=== PATIENT | male | born 1980 | race Two or more races ===

== ENCOUNTER 2022-06-12 18:06 | Inpatient (IN) | payer OTHER, SELFPAY ==
[2022-06-12] VITALS (9 sets, daily range): BP systolic 191–284; BP diastolic 131–178; PULSE 84–122; RESP 15–25; TEMP 36.7–37.1; O2SAT 92–99; BMI 31.1
--- NOTE | ~2022-06-12 | CT_ITS ---
EXAMINATION: CT ANGIOGRAM CHEST CLINICAL INFORMATION: Vomiting. Question dissection. COMPARISON: None TECHNIQUE: Multiple axial images were obtained through the chest after the administration of 50 mL of Omnipaque 350 intravenous contrast. Extensive vascular post-processing including two-dimensional and three-dimensional reformatted images were created and reviewed on an independent workstation. This CT examination was performed using dose optimization techniques as appropriate, variously including the following: *Automated exposure control *Adjustment of mA and/or kV according to patient size (this includes techniques or standardized protocols for targeted exams where dose is matched to indication/reason for exam; i.e. extremities or head) *Use of iterative reconstruction technique DLP: 670 mGy-cm FINDINGS: CTA chest: The entire thoracic aorta is of normal caliber without any dissection or aneurysm. There is a normal three-vessel cervicocerebral arch branching. The pulmonary artery and its branches are widely patent. The heart size is normal. No pericardial effusion seen. Non-CTA: Central trachea and bronchus is widely patent. The thoracic aorta is of normal caliber. No abnormal size mediastinal lymph nodes or hematoma. The lungs are clear with patchy opacity seen in the superior segment of right upper lobe on axial image 28/9. Rest of lungs are clear.. There is no pleural effusion or thickening. Bone windows reveal no bony abnormality. CA ABDOMEN: The abdominal aorta is of normal caliber without aneurysm or dissection. Visualized celiac, superior mesenteric and inferior mesenteric arteries are widely patent. Solitary renal arteries are patent as well. There is a normal branching of the abdominal aorta into common iliac which bifurcate into symmetrical and to the adnexa iliac arteries. No aneurysm or dissection seen in the pelvis. Non-CTA: Visualized liver, spleen, pancreas and bilateral adrenal glands unremarkable. No radiopaque gallstones, renal calculi or hydronephrosis. The kidneys are symmetrical. No retrobulbar lymph nodes or hematoma. There is scattered stool and gas seen in the colon without obstruction. The small bowel loops are normal caliber. Appendix is not visualized however there are surgical sutures in the right lower quadrant likely from previous resection. The stomach is nondistended. The abdominal wall appears unremarkable. The urinary bladder is nondistended. The prostate gland is normal. No abnormal pelvic or inguinal lymph nodes seen. Bone windows reveal no gross bony abnormality. CT/CT angio chest aorta IMPRESSION: No evidence of thoracic or abdominal aortic aneurysm or dissection seen. Normal three-vessel branching of cervical cerebral arch. The abdominal aortic branches and bifurcation are all patent without any aneurysm. There is a patchy opacity in the superior segment right lower lobe question developing or early infiltrate. No acute process seen in the abdomen. Fleischner guidelines were followed.
--- NOTE | ~2022-06-12 | CT_ITS ---
EXAMINATION: CT ANGIOGRAM ABDOMEN AND PELVIS CLINICAL INFORMATION: Dissection question vomiting. COMPARISON: None TECHNIQUE: Multiple axial images were obtained through the abdomen and pelvis following the administration of 100 mL of Omnipaque 350 intravenous contrast. Images were reviewed on a dedicated 3-D workstation. This CT examination was performed using dose optimization techniques as appropriate, variously including the following: *Automated exposure control *Adjustment of mA and/or kV according to patient size (this includes techniques or standardized protocols for targeted exams where dose is matched to indication/reason for exam; i.e. extremities or head) *Use of iterative reconstruction technique DLP: 670 mGy-cm FINDINGS: CTA: There is good opacification of the entire thoracic aorta which is of normal caliber and course. Origin of celiac, superior and inferior mesenteric artery are widely patent. There are 2 left renal arteries and a solitary right renal artery which are patent. The abdominal aorta bifurcates in equal, iliac arteries which in turn bifurcate into internal iliac arteries and their patent. Non-CTA: The liver is normal size, homogeneous in density and normal contour. No focal lesion or intrahepatic ductal dilatation seen. There are no radiopaque gallstones or wall thickening. The spleen and pancreas is unremarkable. Bilateral adrenal glands are normal. Both kidney nephrograms are symmetrical and normal. No radiopaque renal calculi, enhancing renal masses or cysts. There are bilateral extrarenal kidney pelvises. No hydronephrosis seen. The bowel gas pattern is nonspecific with scattered stool and gas in the right colon. The appendix appears to have been surgically removed with sienna in its place. Scattered diverticula are seen in sigmoid colon. There is a loculated fluid collection or soft tissue density in the dependent segment of the stomach No free air or free fluid seen. Imaging through the the pelvis reveals no significant abnormality. The prostate gland is mildly enlarged. The urinary bladder is nondistended there is no free fluid or free air. Bone windows reveal no lytic or sclerotic process. CT/CT angio abdomen pelvis IMPRESSION: No acute intra-abdominal process seen. Especially there is no evidence aortic dissection or aneurysm. Appendix has been surgically removed. No radiopaque gallstone seen. Loculated fluid collection in the dependent segment of stomach. Question localized fluid collection or cyst.
--- NOTE | 2022-06-12 19:30 | ECG_ITS ---
Test Reason : HTN Blood Pressure : / mmHG Vent. Rate : 116 BPM Atrial Rate : 116 BPM P-R Int : 146 ms QRS Dur : 088 ms QT Int : 354 ms P-R-T Axes : 063 026 199 degrees QTc Int : 492 ms Sinus tachycardia Biatrial enlargement Left ventricular hypertrophy ( Sokolow-Julian , [place] product , Romhilt-Ruiz ) Marked ST abnormality, possible inferolateral subendocardial injury Abnormal ECG No previous ECGs available Referred By: Kaitlin Brown Electronically Signed By:BONNIE TAPIA
--- NOTE | 2022-06-12 19:49 | ECG_ITS ---
Test Reason : ELEVATED TROPONIN Blood Pressure : / mmHG Vent. Rate : 081 BPM Atrial Rate : 081 BPM P-R Int : 158 ms QRS Dur : 096 ms QT Int : 432 ms P-R-T Axes : 050 023 192 degrees QTc Int : 501 ms Normal sinus rhythm Right atrial enlargement Moderate voltage criteria for LVH, may be normal variant ( Sokolow-Julian , Favio product ) Septal infarct , age undetermined ST & Marked T-wave abnormality, consider inferolateral ischemia Prolonged QT Abnormal ECG When compared with ECG of 12-JUN-2022 19:55, Septal infarct is now Present Heart rate has decreased Referred By: Kaitlin Brown Electronically Signed By:BONNIE TAPIA
--- NOTE | 2022-06-12 19:49 | ED.ABDPAIN ---
HPI - Abdominal Pain General Chief Complaint: Recheck/Abnormal Lab/Rx Stated Complaint: abd apin,urinating blood Time Seen by Provider: 06/12/22 19:46 History of Present Illness HPI narrative: Patient is a 41-year-old male presents today with having abdominal pain epigastric area ongoing for last 3 days associated with nausea vomited earlier. Patient also complaining of bloody urine. Has a history of appendectomy many years ago. No history of diabetes. No history of hypertension, high cholesterol, smoking. No history of PA. Patient denies any recreational drug use. Under medications. The pain ? goes to the back, it is localized over the epigastric area. Patient denies any history kidney stones. Denies any alcohol no trauma. Normal bowel movement. No sudden in the family Related Data Allergies Allergy/AdvReac Type Severity Reaction Status Date / Time No Known Allergies Allergy Mild NONE Unverified 06/12/20 15:14 Review of Systems Review of Systems Positive epigastric pain Yes all other systems are reviewed and are negative PMFSH Past Medical History Attestation statement: The following information was validated with the patient. Social History Social History Alcohol intake: never Smoked in Last 30 Days: No Use of substances other than those prescribed or required for medical reasons: No Any prior treatment program specific to substance use: No Advance Directives: No Physical Exam ED Vital Signs: Vital Signs - 24 hr 06/12/22 19:22 06/12/22 19:49 06/12/22 20:27 Temperature 98.1 F 98.0 F Pulse Rate 117 H 122 H 95 Respiratory Rate 16 18 18 Blood Pressure 284/178 H 266/175 H 233/160 H Pulse Oximetry 98 98 95 Oxygen Delivery Method Room Air Room Air Room Air 06/12/22 20:28 06/12/22 19:50 06/12/22 21:18 Temperature 98.8 F Pulse Rate 95 89 92 Respiratory Rate 18 25 H Blood Pressure 239/157 H 217/154 H 220/148 H Pulse Oximetry 95 92 Oxygen Delivery Method Room Air Room Air 06/12/22 22:18 Temperature Pulse Rate 88 Respiratory Rate 18 Blood Pressure 194/134 H Pulse Oximetry 98 Oxygen Delivery Method Room Air BMI result Body Mass Index 31.1 Appearance: Alert. Oriented X3. No acute distress. Eyes: Pupils equal, round and reactive to light. ENT: Pharynx normal. Neck: Normal inspection. Neck supple. No lymph nodes noted. No crepitus CVS: Normal heart rate and rhythm. Pulses normal. Normal S1 and S2 Respiratory: No respiratory distress. Breath sounds normal. No Wheezing. No rales Abdomen: Soft and nontender. No rigidity. No distention. good BS x4. no mass Skin: Skin warm and dry. Normal skin color. Normal skin turgor. Extremities: No lower extremity edema. Neurovascular intact to all extremities. No Lacerations. No Rash Neuro: Oriented X 3. No motor deficit. No sensory deficit. Moving all extermities. No slurred speech MDM - Abdominal Pain MDM Narrative Medical decision making narrative: 20:00Patient's initial blood pressure extremely elevated this was verified x2. The blood pressure initially was 284/178. EKG showed a sinus pattern heart rate was 120 NE QRS QT within normal limits. There is significant J-point elevations in the anterior leads with T-wave inversion over the lateral leads. Given the extreme elevated blood pressure. Epigastric pain question going to the back. No prior Cr. No hx of renal failure. Decision was made to get a CTA emergently to rule out the possibility of a dissection. Troponin ordered. Patient given doses of labetalol. Initially 10 mg followed by 20 mg. Patient's blood pressure is now down to 220/140. Repeat EKG being done. Will discuss patient's case with [facility]. 21:30CTA of the chest abdomen pelvis was negative for any acute evidence of dissection.Pt Cr. was elevated at 3 will need close monitoring of kidney function. Repeat ekfg no changes, given ASA 324 mg. Awaiting [facility]. after 3 dose of Labetolol BP down to 198/100 22:00 patient case discussed with [facility] except the patient for further evaluation. Blood pressure still elevated. 200/130. A 4th dose of labetalol was given. 22:15 patient's COVID test positive. Will inform [facility]. Patient made aware. He is not hypoxic. Patient's CT imaging is being sent over the cloud to [facility]. Lab Data Result diagrams: 06/12/22 20:14 06/12/22 20:14 Labs: Lab Results 09/17/22 09/17/22 09/17/22 Range/Units 20:14 20:14 20:14 WBC 10.6 (4.8-10.8) X10*3/uL RBC 5.50 (4.60-5.80) X10*6/uL Hgb 13.1 L (14.0-18.0) g/dl Hct 40.1 L (42.0-52.0) % MCV 72.9 L (80.0-98.0) fL MCH 23.8 L (27.0-33.0) pg MCHC 32.7 (31.0-36.0) g/dl RDW 14.5 (11.0-16.0) % Plt Count 189 (160-400) X10*3/uL MPV 9.6 (9.4-12.4) fL Immature Gran % (Auto) 0.3 (0.0-0.4) % Neut % (Auto) 76.6 H (45-73) % Lymph % (Auto) 14.6 L (20-40) % [place] % (Auto) 7.5 (2-11) % Eos % (Auto) 0.5 (0-4) % Baso % (Auto) 0.5 (0-2) % Lymph # (Auto) 1.6 (1.2-4.9) X10*3/uL [place] # (Auto) 0.8 (0.1-1.2) X10*3/uL Eos # (Auto) 0.1 (0.0-0.4) X10*3/uL Baso # (Auto) 0.1 (0.0-0.2) X10*3/uL Abs Immat Gran (auto) 0.03 (0.00-0.03) X10*3/uL Absolute Neuts (auto) 8.1 (2.0-8.3) x10*3/uL Absolute Nucleated RBC 0.000 (0.0-0.012) X10*3/uL Nucleated RBC % (auto) 0.0 (0.0-0.2) /100WBC Sodium 139 (135-145) mmol/L Potassium 2.6 L (3.3-5.1) mmol/L Chloride 97 (96-108) mmol/L Carbon Dioxide 28 (22-29) mmol/L Anion Gap 17 (12-20) BUN 35 H (9-16) mg/dL Creatinine 3.05 H (0.5-1.4) mg/dL Estim Creat Clear Calc 34.1 Estimated GFR 23 Random Glucose 125 H (60-115) mg/dL Calcium 9.1 (8.4-10.2) mg/dL Total Bilirubin 0.8 (0.0-1.0) mg/dL AST 25 (5-37) U/L ALT 19 (0-40) U/L Alkaline Phosphatase 103 (39-117) U/L Troponin I High Sens 168.1 H* (<3.5-35.0) ng/L Total Protein 7.5 (6.5-8.0) g/dL Albumin 4.3 (3.5-5.0) g/dL Lipase 48 (8-78) U/L Urine Opiates Screen (Not Detect) Urine Fentanyl Screen (Not Detect) Ur Barbiturates Screen (Not Detect) Ur Phencyclidine Scrn (Not Detect) Ur Amphetamines Screen (Not Detect) U Benzodiazepines Scrn (Not Detect) Urine Cocaine Screen (Not Detect) U Marijuana (THC) Screen (Not Detect) COVID-19 (CAROLE) (Negative) COVID-19 Clin Com 06/12/22 06/12/22 Range/Units 21:54 22:06 WBC (4.8-10.8) X10*3/uL RBC (4.60-5.80) X10*6/uL Hgb (14.0-18.0) g/dl Hct (42.0-52.0) % MCV (80.0-98.0) fL MCH (27.0-33.0) pg MCHC (31.0-36.0) g/dl RDW (11.0-16.0) % Plt Count (160-400) X10*3/uL MPV (9.4-12.4) fL Immature Gran % (Auto) (0.0-0.4) % Neut % (Auto) (45-73) % Lymph % (Auto) (20-40) % [place] % (Auto) (2-11) % Eos % (Auto) (0-4) % Baso % (Auto) (0-2) % Lymph # (Auto) (1.2-4.9) X10*3/uL [place] # (Auto) (0.1-1.2) X10*3/uL Eos # (Auto) (0.0-0.4) X10*3/uL Baso # (Auto) (0.0-0.2) X10*3/uL Abs Immat Gran (auto) (0.00-0.03) X10*3/uL Absolute Neuts (auto) (2.0-8.3) x10*3/uL Absolute Nucleated RBC (0.0-0.012) X10*3/uL Nucleated RBC % (auto) (0.0-0.2) /100WBC Sodium (135-145) mmol/L Potassium (3.3-5.1) mmol/L Chloride (96-108) mmol/L Carbon Dioxide (22-29) mmol/L Anion Gap (12-20) BUN (9-16) mg/dL Creatinine (0.5-1.4) mg/dL Estim Creat Clear Calc Estimated GFR Random Glucose (60-115) mg/dL Calcium (8.4-10.2) mg/dL Total Bilirubin (0.0-1.0) mg/dL AST (5-37) U/L ALT (0-40) U/L Alkaline Phosphatase (39-117) U/L Troponin I High Sens (<3.5-35.0) ng/L Total Protein (6.5-8.0) g/dL Albumin (3.5-5.0) g/dL Lipase (8-78) U/L Urine Opiates Screen Not Detected (Not Detect) Urine Fentanyl Screen Not Detected (Not Detect) Ur Barbiturates Screen Not Detected (Not Detect) Ur Phencyclidine Scrn Not Detected (Not Detect) Ur Amphetamines Screen Not Detected (Not Detect) U Benzodiazepines Scrn Not Detected (Not Detect) Urine Cocaine Screen Not Detected (Not Detect) U Marijuana (THC) Screen Not Detected (Not Detect) COVID-19 (CAROLE) Positive A (Negative) COVID-19 Clin Com See Note Critical Care Time Critical Care Time Critical Care Time: Yes Total Critical Care Time: 90 Attestation: I have personally provided 90 minutes of critical care time exclusive of time spent on separately billable procedures. Time includes review of lab data, radiology results, discussion with consultants, and monitoring for potential decompensation. Interventions were performed as documented above Discharge Plan Discharge Clinical Impression: Hypertensive emergency, no CHF, Acute renal failure, COVID-19 Patient Disposition: [facility] Transfer Details: transfer to [facility]
[2022-06-12] MEDS: 0.9 % Sodium Chloride 1,000 ML 999 ML IV ×2 (20:18→22:58)
[2022-06-12] MEDS: ondansetron HCL 4 MG/2 ML VIAL IVPUSH (20:18)
[2022-06-12 20:20] LABS: MANUAL DIFF FLAG NO
[2022-06-12] MEDS: HYDROmorphone HCl 0.5 MG/0.5 ML SYRINGE IVPUSH (20:20)
[2022-06-12] MEDS: Labetalol HCL 100 MG/20 ML VIAL 10 MG IVPUSH (20:21)
[2022-06-12 20:30] LABS: Basophils Absolute Auto 0.1 X10*3/uL (0.0-0.2); Basophils Percent Auto 0.5 % (0-2); Eosinophils Absolute Auto 0.1 X10*3/uL (0.0-0.4); Eosinophils Percent Auto 0.5 % (0-4); Hematocrit 40.1 % (42.0-52.0); Hemoglobin 13.1 g/dl (14.0-18.0); Imm Gran Abs Auto 0.03 X10*3/uL (0.00-0.03); Imm Gran Pct Auto 0.3 % (0.0-0.4); Lymphocytes Absolute Auto 1.6 X10*3/uL (1.2-4.9); Lymphocytes Percent Auto 14.6 % (20-40); Mean Corpuscular HGB Conc 32.7 g/dl (31.0-36.0); Mean Corpuscular Hemoglobin 23.8 pg (27.0-33.0); Mean Corpuscular Volume 72.9 fL (80.0-98.0); Mean Platelet Volume 9.6 fL (9.4-12.4); Monocytes Absolute Auto 0.8 X10*3/uL (0.1-1.2); Monocytes Percent Auto 7.5 % (2-11); Neutrophils Absolute Auto 8.1 x10*3/uL (2.0-8.3); Neutrophils Percent Auto 76.6 % (45-73); Platelet Count 189 X10*3/uL (160-400); Red Cell Distribution Width 14.5 % (11.0-16.0); White Blood Count 10.6 X10*3/uL (4.8-10.8)
[2022-06-12] MEDS: Labetalol HCL 100 MG/20 ML VIAL 20 MG IVPUSH ×3 (20:31→22:21)
[2022-06-12] MEDS: iohexoL 350 MG/ML 100 ML INFUS..BTL IV (20:57)
[2022-06-12 21:09] LABS: Alanine Aminotransferase 19 U/L (0-40); Albumin Level 4.3 g/dL (3.5-5.0); Alkaline Phosphatase 103 U/L (39-117); Anion Gap 17 (12-20); Aspartate Amino Transferase 25 U/L (5-37); Bilirubin Total 0.8 mg/dL (0.0-1.0); Blood Urea Nitrogen 35 mg/dL (9-16); Calcium 9.1 mg/dL (8.4-10.2); Carbon Dioxide 28 mmol/L (22-29); Chloride 97 mmol/L (96-108); Creatinine Clr Calc Pharmacy 34.1; Estimated Glomerular Filt Rate 23; Glucose Random 125 mg/dL (60-115); Lipase 48 U/L (8-78); Potassium 2.6 mmol/L (3.3-5.1); Sodium 139 mmol/L (135-145); Total Protein 7.5 g/dL (6.5-8.0)
[2022-06-12 21:11] LABS: Troponin-I High Sensitivity 168.1 ng/L (<3.5-35.0)
--- NOTE | 2022-06-12 21:17 | ECG_ITS ---
Test Reason : HYPERTENSIVE CRISIS Blood Pressure : / mmHG Vent. Rate : 072 BPM Atrial Rate : 072 BPM P-R Int : 158 ms QRS Dur : 088 ms QT Int : 466 ms P-R-T Axes : 051 029 198 degrees QTc Int : 510 ms Normal sinus rhythm Possible Left atrial enlargement Left ventricular hypertrophy ( Sokolow-Julian , Favio product , Romhilt-Ruiz ) ST elevation now present in Septal leads Marked T-wave abnormality, consider inferolateral ischemia Prolonged QT Abnormal ECG When compared with ECG of 12-JUN-2022 21:34, Septal injury pattern is now Present Referred By: Kaitlin Brown Electronically Signed By:BONNIE TAPIA
[2022-06-12] MEDS: Potassium Chloride Packet 20 MEQ PACKET 40 MEQ PO (21:30)
[2022-06-12] MEDS: Aspirin 81 MG TAB.CHEW 324 MG PO (21:30)
[2022-06-12] MEDS: Potassium Chloride/H20 10 MEQ/100 ML PIGGYBACK 100 MEQ IV ×2 (21:49→22:53)
[2022-06-12 22:14] LABS: Amphetamine Screen Urine Not Detected (Not Detect); Barbiturates, Urine Not Detected (Not Detect); Benzodiazepines Screen Urine Not Detected (Not Detect); Cannabinoid Screen Urine Not Detected (Not Detect); Cocaine Screen Urine Not Detected (Not Detect); Fentanyl, urine Not Detected (Not Detect); Opiate Screen Urine Not Detected (Not Detect); Phencyclidine Screen Urine Not Detected (Not Detect)
[2022-06-12 22:19] LABS: COVID-19 Test Positive (Negative)
[2022-06-12 22:25] LABS: Appearance Urine Turbid; Color Urine RED; Glucose Urine UA 100 mg/dL (Negative); Leukocyte Esterase Urine Negative (Negative); Nitrite Urine Negative (Negative); Specific Gravity - Urine >= 1.030 (1.005-1.025); UMIC TRIGGER UACC YES; Urine Blood Large (3+) (Negative); Urine Ketones Negative (Negative); Urine Protein 300 (3+) mg/dL (Neg-Trace)
--- NOTE | 2022-06-12 22:36 | PC.NURSE ---
Addendum entered by Svitlana Toth 06/12/22 22:41: Due to covid + status, no bed available. Original Note: Accepting MD [facility] at [facility]
[2022-06-12 22:41] LABS: RBC Urine >20 /HPF (0-2); Squamous Epithelial Cell Urine 0-2 /HPF (0-2); WBC Urine 0-5 /HPF (0-5)
[2022-06-12 22:42] LABS: Bacteria Urine None Seen (None Seen)
[2022-06-12 23:32] LABS: Troponin-I High Sensitivity 185.6 ng/L (<3.5-35.0)
[2022-06-12] MEDS: atenoloL 100 MG TABLET PO (23:44)
[2022-06-12] MEDS: Nitroglycerin 2 % Oint 1 GM Packet 1 INCH TRANSDERMA (23:44)
[2022-06-12] MEDS: Lactated Ringers 1,000 ML 999 ML IV (23:52)
[2022-06-13] VITALS (13 sets, daily range): BP systolic 131–186; BP diastolic 78–109; PULSE 70–86; RESP 16–27; TEMP 36.4–37.1; O2SAT 93–99
[2022-06-13] MEDS: Heparin Sodium,Porcine 5,000 UNIT/ML VIAL 5000 UNIT SUBCUT
[2022-06-13] MEDS: Lactated Ringers 1,000 ML 999 ML IV (00:03)
[2022-06-13 00:06] LABS: Lactic Acid 0.9 mmol/L (0.5-2.0)
[2022-06-13 00:10] LABS: Iron 47 mcg/dL (45-160); Percent Iron Saturation 17 % (15-50); Total Iron Binding Capacity 278 mcg/dL (228-428); Unsaturated Iron Binding 231 ug/dL
[2022-06-13 00:36] LABS: Procalcitonin 0.06 ng/mL
[2022-06-13 00:39] LABS: Estimated Glomerular Filt Rate 29
--- NOTE | 2022-06-13 00:44 | P.CONCC_ITS ---
History of Present Illness Data of Consult Service Date: 06/13/22 Requesting physician: Kaitlin Brown Primary Care Provider: None Physician HPI Reason for consult: Full consult to follow HPI: ?41-year-old male without a past medical history presents to us via consult from the emergency room given significant hypertension, troponin abnormality.? The patient had come to the emergency room with complaints of hematuria which started about 3 in the morning on 06/12/2022, denies history of kidney stones, he does take some ibuprofen every now and then. ?Patient presented to the emergency room with complaints of hematuria, epigastric abdominal pain radiating to the le ft side of his chest and back, rated 9/10 at its worse, associated with nausea, nothing made it better and he cannot identify anything making it worse.? There is no family history of coronary artery disease.? Patient denies any lightheadedness or dizziness, arm or jaw pain, shortness of breath, palp itations, no recent traveling. In the ER he was significantly hypertensive on arrival with blood pressure of 284/178, heart rate of 117, respiratory rate 16, O2 sat 98% on room air, temperature 98 degrees point 1, he received a total of 4 doses of labetalol with total dose of 90 mg IV decreasing his blood pressure to 194/134.? He also received Zofran and 0.5 mg of Dilaudid, full-dose aspirin. ?The patient's EKG is significant for ST elevations throughout the anterior leads with ST depressions throughout the lateral leads followed by a repeat EKG which shows the same changes although to a lesser degree approximately 1-1/2 hours apart.? Again the patient has had no direct chest discomfort or shortness of breath. He did have a chest CT , abdomen pelvis CTA there is no evidence of PE, there is patchy opacities in the superior segment of the right upper lobe, no evidence of thoracic abdominal aortic aneurysm or dissection.? All the abdominal aortic branches and bifurcations are all patent without any aneurysms.? No acute process of the abdomen. His laboratory showed a white count 10.6, H&H of 13.140.1 respectively with an MCV of 72.9, platelets 189.? Sodium 139, potassium 2.6 for which replacement was given, BUN 35, creatinine 2.48 (no baseline available) lactic acid 0.9 iron profile 0.? Initial troponin 168.1 followed by 2nd troponin 3 hours later at 185.6. Currently patient feels much better, he does have gross hematuria but no longer has the above-mentioned epigastric/left chest, back pain.? He is COVID positive. ?U tox completely negative. The initial plan was to transfer him to [facility] [place] but in light of his COVID positive result, this was not possible, we were asked to see the patient for possible admission to the ICU. Review of systems: As above, otherwise the patient denies any prior history of strokes, cold intolerance, migraine headaches, head trauma, no eyes, ears or nose problems, no problems swallowing or with phonation, no thyroid disease, denies cough, sputum production, pneumonia, bronchitis, COPD or emphysema, abdominal pain, nausea, vomiting, diarrhea, abdominal surgeries, melena, hematochezia, hematemesis, liver problems, immunocompromise state of any kind, no history of DVT or PE, leg edema, fractures or extremity surgeries all other review of systems were reviewed and they were all negative. Past Medical History:? As above Past Surgical History: Appendectomy Family history:? Noncontributory Social History:? Lives at home, social drinker, no tobacco drugs. CODE STATUS: FULL CODE Allergies: NKDA Home Medications: See Med Rec PHYSICAL EXAM: VS: ?191/131, 84, 15, 8% room air. General:? Alert oriented x3 no acute distress.? Speaking full sentences.? Speech is well articulated, thought process is coherent.? Following all commands. Skin:? Intact, no lesions, edema, erythema, clubbing or cyanosis.? No ulcers. HEENT:? Head is normocephalic, atraumatic, pupils equal round reactive to light accommodation bilaterally.? Extraocular movements appear intact.? Buccal mucosa is moist, Neck is supple without lymphadenopathy. Cardiac:? Clear S1-S2, no murmurs rubs or gallops.? There is no reversible palpable pain on the chest Pulmonary:? Minor coarseness at the right upper lobe without clear rhonchi, wheeze or rales Abdomen:? Protuberant, positive bowel sounds in all 4 quadrants.? Soft, nont alma, no rebound or guarding.? No CVA tenderness. Musculoskeletal:? Moving all 4 extremities upon request a major joints, there is no crepitus or tenderness.? The strength is 5/5 bilaterally and throughout all 4 extremities.? There is no leg edema , no calf tenderness , no leg asymmetry.? Gait not assessed at this point. Neurologic:? As above, cranial nerves 2-12 are grossly intact.? No focal def icits noted. Motor strength as above.? Vascular:? 2+ pulses upper and lower extremities distally. SIGNIFICANT LABORATORY DATA:? As above REVIEW OF IMAGES: ?As above EKG REVIEW:? As above ASSESSMENT : 1. Hypertensive emergency with end organ damage 2. Acute kidney injury 3. Significant proteinuria rule out nephrotic syndrome 4. Hematuria and abdominal pain without evidence of obstructive uropathy rule ou t renal infarction 5. ST elevations and depressions with abnormal troponin rule out acute coronary syndrome 6. Acute hypokalemia 7. Patchy opacities of the right upper lobe unsure if this represents pneumonia as the patient does not have symptoms PLAN OF CARE: Given the significance of the EKG and symptomatology, 1st and foremost is important to rule out acute coronary syndrome until proven otherwise.? Patient needs to be transferred to a tertiary facility were cardiac catheterization is available further evaluation. ?Given the hematuria, it is unlikely the patient is able to receive heparin at this point. I have ordered nitroglycerin paste to be applied to the chest, Lopressor 5 mg IV x1.? I did order blood cultures, however I did not order antibiotics for the patient is afebrile, does not have awakened, he is not sure breath, does not have cough or sputum production, this is less likely to represent a pneumonia.? It could be due to COVID positive results. After the above-mentioned medications the latest blood pressure is 165/108.? I also ordered 2 L of IV fluid for the patient was not produce any urine in the ER but now his voiding pink-red this urine.? Eventually the patient will need Nephrology evaluation and at the [place] did ultrasound of the kidneys. The above-mentioned assessment my plan of transferring the patient to a tertiary facility was discussed in detail with my collaborating physician Dr. Mckinney who agrees.? This information was shared with the ER physician Dr. Brown. Critical care time used for critical evaluation of this patient, diagnosis, treatment and coordination of care, review her records and documentation TOTAL CRITICAL CARE TIME 90 MIN . discussion and coordination with consultants, completely separate from any procedures performed. [facility] Social History Social History Alcohol intake: never Smoked in Last 30 Days: No Use of substances other than those prescribed or required for medical reasons: No Any prior treatment program specific to substance use: No Advance Directives: No Meds Allergies Allergy/AdvReac Type Severity Reaction Status Date / Time No Known Allergies Allergy Mild NONE Unverified 06/12/20 15:14 Physical Exam Vital Signs: Vital Signs: Last Vital Signs Temp 98.8 F 06/12/22 21:18 Pulse 86 06/13/22 00:04 Resp 18 06/13/22 00:04 BP 166/109 H 06/13/22 00:04 Pulse Ox 99 06/13/22 00:04 O2 Del Method 06/13/22 00:04 O2 Flow Rate 2 06/12/22 22:35 BMI result Body Mass Index 31.1 Results Labs CBC & Chem 7: 06/12/22 20:14 06/12/22 23:36 Labs: Short CBC 06/12/22 Range/Units 20:14 WBC 10.6 (4.8-10.8) X10*3/uL Hgb 13.1 L (14.0-18.0) g/dl Hct 40.1 L (42.0-52.0) % Plt Count 189 (160-400) X10*3/uL BMP 06/12/22 06/12/22 20:14 23:36 Sodium 139 Potassium 2.6 L Chloride 97 Carbon Dioxide 28 BUN 35 H Creatinine 3.05 H 2.48 H Calcium 9.1 Liver Function 06/12/22 Range/Units 20:14 Total Bilirubin 0.8 (0.0-1.0) mg/dL AST 25 (5-37) U/L ALT 19 (0-40) U/L Alkaline Phosphatase 103 (39-117) U/L Albumin 4.3 (3.5-5.0) g/dL Urine 06/12/22 Range/Units 21:54 Urine Color RED Urine Appearance Turbid Urine pH 6.0 (5.0-9.0) Ur Specific [place] >= 1.030 H (1.005-1.025) Urine Protein 300 (3+) H (Neg-Trace) mg/dL Urine Glucose (UA) 100 H (Negative) mg/dL
--- NOTE | 2022-06-13 00:47 | PC.NURSE ---
@0047 DR BURNS ASKS FOR CALL OUT TO [facility] [place] ANSWERS, TAKES PT INFO THEN ASKS TO SPEAK WITH DR GRANT BURNS TAKES OVER CALL RIGHT AWAY
--- NOTE | 2022-06-13 00:49 | PC.NURSE ---
@0049 DR BURNS REQUESTS TO SPEAK WITH [facility] TRANSFER KRYST[facility] ANSWERS, TAKES PT INFO THEN ASK TO SPEAK WITH DR GRANT BURNS TAKES OVER CALL
[2022-06-13] MEDS: Metoprolol Tartrate 5 MG/5 ML VIAL IVPUSH (00:59)
[2022-06-13 01:01] LABS: TSH reflex Free T4 1.05 uIU/mL (0.32-4.0)
[2022-06-13 01:10] LABS: Cortisol Random 14.8 ug/dL
[2022-06-13] MEDS: 0.9 % Sodium Chloride 1,000 ML 999 ML IV (01:54)
--- NOTE | 2022-06-13 02:53 | ECG_ITS ---
Test Reason : follow up Blood Pressure : / mmHG Vent. Rate : 076 BPM Atrial Rate : 076 BPM P-R Int : 166 ms QRS Dur : 088 ms QT Int : 436 ms P-R-T Axes : 046 042 208 degrees QTc Int : 490 ms Normal sinus rhythm Possible Left atrial enlargement Left ventricular hypertrophy with repolarization abnormality ( Sokolow-Julian , Romhilt-Ruiz ) Nonspecific ST abnormality Prolonged QT Abnormal ECG When compared with ECG of 13-JUN-2022 03:03, No significant change was found Referred By: Barb Mckinney Electronically Signed By:BONNIE TAPIA
[2022-06-13 02:56] LABS: Anion Gap 13 (12-20); Blood Urea Nitrogen 26 mg/dL (9-16); Calcium 7.6 mg/dL (8.4-10.2); Carbon Dioxide 26 mmol/L (22-29); Chloride 104 mmol/L (96-108); Creatinine Clr Calc Pharmacy 46.9; Estimated Glomerular Filt Rate 33; Glucose Random 110 mg/dL (60-115); Potassium 3.2 mmol/L (3.3-5.1); Sodium 140 mmol/L (135-145)
--- NOTE | 2022-06-13 04:58 | P.PNCC_ITS ---
Subjective Subjective Date of Service: 06/13/22 Interval History: arrive to see patient at approximately 04:00 after being initially in informed and having the initial EKGs and troponin information sent to me while the patient was having active epigastric pain and clearly had left ventricular enlargement with diffuse ST-T changes however the anterior precordial leads with ST elevation throughout in the face of the initially positive troponin was disconcerting and the cocaine toxicology was negative and he really was not a smoker and did not have a family history of premature coronary disease nor did he ever carry a history but the other confounding factor was that he simultaneously along with the clear-cut malignant level of hypertension had hematuria at the very least if the troponin positivity and EKG positivity were indicating an acute coronary syndrome we could even offer medical therapy and we felt he would have his interest best served in a tertiary care hospital with the mason tender restoration labor but here he needed to have ruled out either type a or type B dissection with renal artery involvement might even need a collagen vascular workup at some point or other but having accomplished ruling out a dissection with a normal looking aorta ultimately he was here long enough for a 3rd set of cardiac enzymes at 08:00 hours which basically remained low and fairly flat not assuming the pattern of somebody with acute coronary syndrome but a nonspecific enzymes still related to malignant hypertension and as his blood pressure backed off with the IV labetalol his epigastric pain went away he never complained of dyspnea EKG remained relatively unchanged but we still do not understand the nature of the hematuria in that he never had back discomfort pelvic discomfort nothing consistent with stone or infection nor does his urinalysis imply that and there were no casts to imply glomerular disease and he certainly did not have a renal arterial appearance that looks like a polyarteritis issue and I performed bedside echo and he has marked concentric left ventricular hypertrophy and a borderline ejection fraction probably between 50 and 55% with normal right ventricle no primary valve or pericardial disease and globally normal systolic wall motion without segmental wall motion abnormality in that includes the apex which I was able to see in several views in addition to further rule out an acute coronary syndrome as a screen I sent off a CRP and a sed rate both are very normal so I would tend to doubt that an acute coronary syndrome was the primary issue with the pressure being secondary I think this was malignant hypertension and the acute degree of of afterload precipitated his epigastric discomfort which I think was a manifestation of heart failure and again he has got marked concentric hypertrophy with evidence of reduced systolic and probably diastolic reserve formal echo and a nuclear stress are ordered for the balance of his hospitalization but currently his blood pressure is beautifully controlled I started him on Coreg at 3.125 mg every 12 hours which can be titrated and he is asymptomatic Critical Care Time (minutes): 45 Physical Exam Vital Signs: Vital Signs: Last Vital Signs Temp 98.3 F 06/13/22 03:32 Pulse 70 06/13/22 03:32 Resp 25 H 06/13/22 03:32 BP 143/92 H 06/13/22 03:32 Pulse Ox 98 06/13/22 03:32 O2 Del Method 06/13/22 03:32 O2 Flow Rate 2 06/12/22 22:35 BMI result Body Mass Index 31.1 awake alert and nonfocal neurologically no progressive changes on EKG cardiac exam as I described above by bedside echo lungs by a chest x-ray as well as exam and CT scan all within normal limits abdomen soft benign no expansile mass no again a megaly excellent peripheral pulses skin warm well perfused no livedo Objective Data Labs CBC & Chem 7: 06/13/22 06:22 06/13/22 06:22 Labs: Laboratory Results - last 24 hr 06/12/22 06/12/22 06/12/22 20:14 20:14 20:14 WBC 10.6 RBC 5.50 Hgb 13.1 L Hct 40.1 L MCV 72.9 L MCH 23.8 L MCHC 32.7 RDW 14.5 Plt Count 189 MPV 9.6 Immature Gran % (Auto) 0.3 Neut % (Auto) 76.6 H Lymph % (Auto) 14.6 L [place] % (Auto) 7.5 Eos % (Auto) 0.5 Baso % (Auto) 0.5 Lymph # (Auto) 1.6 [place] # (Auto) 0.8 Eos # (Auto) 0.1 Baso # (Auto) 0.1 Abs Immat Gran (auto) 0.03 Absolute Neuts (auto) 8.1 Absolute Nucleated RBC 0.000 Nucleated RBC % (auto) 0.0 Sodium 139 Potassium 2.6 L Chloride 97 Carbon Dioxide 28 Anion Gap 17 BUN 35 H Creatinine 3.05 H Estim Creat Clear Calc 34.1 Estimated GFR 23 Random Glucose 125 H Lactic Acid Calcium 9.1 Iron TIBC % Saturation Unsat Iron Binding Total Bilirubin 0.8 AST 25 ALT 19 Alkaline Phosphatase 103 Troponin I High Sens 168.1 H* Total Protein 7.5 Albumin 4.3 Lipase 48 Procalcitonin TSH Random Cortisol Urine Color Urine Appearance Urine pH Ur Specific [place] Urine Protein Urine Glucose (UA) Urine Ketones Urine Blood Urine Nitrite Ur Leukocyte Esterase Urine RBC Urine WBC Ur Squamous Epith Cells Urine Bacteria Hyaline Casts Urine Opiates Screen Urine Fentanyl Screen Ur Barbiturates Screen Ur Phencyclidine Scrn Ur Amphetamines Screen U Benzodiazepines Scrn Urine Cocaine Screen U Marijuana (THC) Screen COVID-19 (CAROLE) COVID-19 Clin Com 06/12/22 06/12/22 06/12/22 21:54 21:54 22:06 WBC RBC Hgb Hct MCV MCH MCHC RDW Plt Count MPV Immature Gran % (Auto) Neut % (Auto) Lymph % (Auto) [place] % (Auto) Eos % (Auto) Baso % (Auto) Lymph # (Auto) [place] # (Auto) Eos # (Auto) Baso # (Auto) Abs Immat Gran (auto) Absolute Neuts (auto) Absolute Nucleated RBC Nucleated RBC % (auto) Sodium Potassium Chloride Carbon Dioxide Anion Gap BUN Creatinine Estim Creat Clear Calc Estimated GFR Random Glucose Lactic Acid Calcium Iron TIBC % Saturation Unsat Iron Binding Total Bilirubin AST ALT Alkaline Phosphatase Troponin I High Sens Total Protein Albumin Lipase Procalcitonin TSH Random Cortisol Urine Color RED Urine Appearance Turbid Urine pH 6.0 Ur Specific [place] >= 1.030 H Urine Protein 300 (3+) H Urine Glucose (UA) 100 H Urine Ketones Negative Urine Blood Large (3+) H Urine Nitrite Negative Ur Leukocyte Esterase Negative Urine RBC >20 H Urine WBC 0-5 Ur Squamous Epith Cells 0-2 Urine Bacteria None Seen Hyaline Casts 3-5 Urine Opiates Screen Not Detected Urine Fentanyl Screen Not Detected Ur Barbiturates Screen Not Detected Ur Phencyclidine Scrn Not Detected Ur Amphetamines Screen Not Detected U Benzodiazepines Scrn Not Detected Urine Cocaine Screen Not Detected U Marijuana (THC) Screen Not Detected COVID-19 (CAROLE) Positive A COVID-19 Clin Com See Note 06/12/22 06/12/22 06/12/22 23:03 23:36 23:36 WBC RBC Hgb Hct MCV MCH MCHC RDW Plt Count MPV Immature Gran % (Auto) Neut % (Auto) Lymph % (Auto) [place] % (Auto) Eos % (Auto) Baso % (Auto) Lymph # (Auto) [place] # (Auto) Eos # (Auto) Baso # (Auto) Abs Immat Gran (auto) Absolute Neuts (auto) Absolute Nucleated RBC Nucleated RBC % (auto) Sodium Potassium Chloride Carbon Dioxide Anion Gap BUN Creatinine Estim Creat Clear Calc Estimated GFR Random Glucose Lactic Acid 0.9 Calcium Iron TIBC % Saturation Unsat Iron Binding Total Bilirubin AST ALT Alkaline Phosphatase Troponin I High Sens 185.6 H* Total Protein Albumin Lipase Procalcitonin 0.06 TSH Random Cortisol Urine Color Urine Appearance Urine pH Ur Specific [place] Urine Protein Urine Glucose (UA) Urine Ketones Urine Blood Urine Nitrite Ur Leukocyte Esterase Urine RBC Urine WBC Ur Squamous Epith Cells Urine Bacteria Hyaline Casts Urine Opiates Screen Urine Fentanyl Screen Ur Barbiturates Screen Ur Phencyclidine Scrn Ur Amphetamines Screen U Benzodiazepines Scrn Urine Cocaine Screen U Marijuana (THC) Screen COVID-19 (CAROLE) COVID-19 Mobclix 06/12/22 06/12/22 06/13/22 23:36 23:36 02:32 WBC RBC Hgb Hct MCV MCH MCHC RDW Plt Count MPV Immature Gran % (Auto) Neut % (Auto) Lymph % (Auto) [place] % (Auto) Eos % (Auto) Baso % (Auto) Lymph # (Auto) [place] # (Auto) Eos # (Auto) Baso # (Auto) Abs Immat Gran (auto) Absolute Neuts (auto) Absolute Nucleated RBC Nucleated RBC % (auto) Sodium Potassium Chloride Carbon Dioxide Anion Gap BUN Creatinine 2.48 H Estim Creat Clear Calc 42.0 Estimated GFR 29 Random Glucose Lactic Acid Calcium Iron 47 TIBC 278 % Saturation 17 Unsat Iron Binding 231 Total Bilirubin AST ALT Alkaline Phosphatase Troponin I High Sens 170.0 H* Total Protein Albumin Lipase Procalcitonin TSH 1.05 Random Cortisol 14.8 Urine Color Urine Appearance Urine pH Ur Specific [place] Urine Protein Urine Glucose (UA) Urine Ketones Urine Blood Urine Nitrite Ur Leukocyte Esterase Urine RBC Urine WBC Ur Squamous Epith Cells Urine Bacteria Hyaline Casts Urine Opiates Screen Urine Fentanyl Screen Ur Barbiturates Screen Ur Phencyclidine Scrn Ur Amphetamines Screen U Benzodiazepines Scrn Urine Cocaine Screen U Marijuana (THC) Screen COVID-19 (CAROLE) COVID-19 [place] Com 06/13/22 02:32 WBC RBC Hgb Hct MCV MCH MCHC RDW Plt Count MPV Immature Gran % (Auto) Neut % (Auto) Lymph % (Auto) [place] % (Auto) Eos % (Auto) Baso % (Auto) Lymph # (Auto) [place] # (Auto) Eos # (Auto) Baso # (Auto) Abs Immat Gran (auto) Absolute Neuts (auto) Absolute Nucleated RBC Nucleated RBC % (auto) Sodium 140 Potassium 3.2 L D Chloride 104 Carbon Dioxide 26 Anion Gap 13 BUN 26 H Creatinine 2.22 H Estim Creat Clear Calc 46.9 Estimated GFR 33 Random Glucose 110 Lactic Acid Calcium 7.6 L D Iron TIBC % Saturation Unsat Iron Binding Total Bilirubin AST ALT Alkaline Phosphatase Troponin I High Sens Total Protein Albumin Lipase Procalcitonin TSH Random Cortisol Urine Color Urine Appearance Urine pH Ur Specific [place] Urine Protein Urine Glucose (UA) Urine Ketones Urine Blood Urine Nitrite Ur Leukocyte Esterase Urine RBC Urine WBC Ur Squamous Epith Cells Urine Bacteria Hyaline Casts Urine Opiates Screen Urine Fentanyl Screen Ur Barbiturates Screen Ur Phencyclidine Scrn Ur Amphetamines Screen U Benzodiazepines Scrn Urine Cocaine Screen U Marijuana (THC) Screen COVID-19 (CAROLE) COVID-19 Clin Com Progress Note: A&P Assessment and plan (1) Hypertensive emergency, no CHF: Status: Acute (2) Acute renal failure: Status: Acute (3) COVID-19: Status: Acute (4) Hypokalemia: Status: Acute (5) Chest pain at rest: Status: Acute (6) Hematuria: Status: Acute Plan so at this point he seems to be through the malignant phase of his hypertension and he is currently on Coreg at low dose which can be titrated progressively but the hypokalemia is an interesting feature in that he had not been diuresed it raises questions about hyper aldosteronism and that probably should be searched for I day and I failed to see any vascular issues here no evidence of aneurysm or dissection and no evidence of renal infarct and I doubt that there is an underlying collagen vascular or vasculitic process but I did ask for renal consult only because he did also simultaneously present with hematuria Quality Stroke Does the patient have a stroke diagnosis?: No VTE Prior VTE?: No VTE Risk Level:: Medical - moderate - high VTE Device Contraindication: N/A - Device Ordered VTE Drug Contraindication: N/A - Med Ordered
[2022-06-13] MEDS: Lactated Ringers 1,000 ML 100 ML IVCONT ×2 (05:07→15:11)
--- NOTE | 2022-06-13 05:30 | PC.NURSE ---
Patient is alert and oriented x5. Patient is Upper Sor[place] Speaking. He understands simple instructions/commands in [place]i. He is able to make his needs known. Patient urinates into a urinal independently. Urine is light pink in color, no blood clots noted. Patient denies any chest pain/headache. BP improving 140's/90's for the past 3 hours. P 70-80's. O2 Sat 97-98% on O2 at 2 LPM NC. Lactated Ringer's solution started at 100 mL/hr. Both IV lines in R AC 20 G and L AC 18 G flushed with NS-no resistance with flushing.
--- NOTE | 2022-06-13 06:36 | PC.NURSE ---
Nurse to nurse report giveno ICU nurse patient is ready to be transported to ICU room 282 on tele monitor, O2 at 2 LPM NC, and LR running at 100 mL/hr.
[2022-06-13 07:02] LABS: MANUAL DIFF FLAG NO
[2022-06-13 07:07] LABS: Basophils Percent Auto 0.3 % (0-2); Eosinophils Absolute Auto 0.1 X10*3/uL (0.0-0.4); Eosinophils Percent Auto 0.5 % (0-4); Hematocrit 32.9 % (42.0-52.0); Hemoglobin 10.7 g/dl (14.0-18.0); Imm Gran Abs Auto 0.04 X10*3/uL (0.00-0.03); Imm Gran Pct Auto 0.3 % (0.0-0.4); Lymphocytes Absolute Auto 1.2 X10*3/uL (1.2-4.9); Lymphocytes Percent Auto 10.4 % (20-40); Mean Corpuscular HGB Conc 32.5 g/dl (31.0-36.0); Mean Corpuscular Hemoglobin 24.1 pg (27.0-33.0); Mean Corpuscular Volume 74.1 fL (80.0-98.0); Mean Platelet Volume 10.7 fL (9.4-12.4); Monocytes Absolute Auto 0.7 X10*3/uL (0.1-1.2); Monocytes Percent Auto 6.4 % (2-11); Neutrophils Absolute Auto 9.4 x10*3/uL (2.0-8.3); Neutrophils Percent Auto 82.1 % (45-73); Platelet Count 168 X10*3/uL (160-400); Red Blood Count 4.44 X10*6/uL (4.60-5.80); Red Cell Distribution Width 14.6 % (11.0-16.0); White Blood Count 11.5 X10*3/uL (4.8-10.8)
[2022-06-13 08:16] LABS: Alanine Aminotransferase 16 U/L (0-40); Anion Gap 16 (12-20); Aspartate Amino Transferase 19 U/L (5-37); Bilirubin Total 0.9 mg/dL (0.0-1.0); Blood Urea Nitrogen 26 mg/dL (9-16); Calcium 7.8 mg/dL (8.4-10.2); Carbon Dioxide 25 mmol/L (22-29); Chloride 103 mmol/L (96-108); Creatinine Clr Calc Pharmacy 48.6; Estimated Glomerular Filt Rate 34; Glucose Random 93 mg/dL (60-115); Phosphorus 3.4 mg/dL (2.7-4.5); Potassium 3.1 mmol/L (3.3-5.1); Sodium 141 mmol/L (135-145)
[2022-06-13 08:34] LABS: Albumin Level 3.2 g/dL (3.5-5.0); Alkaline Phosphatase 76 U/L (39-117); Total Protein 5.6 g/dL (6.5-8.0)
[2022-06-13] MEDS: carvediloL 3.125 MG TABLET PO ×2 (08:55→21:56)
[2022-06-13 09:28] LABS: C Reactive Protein 0.29 mg/dL (< or = 0.50)
[2022-06-13 09:41] LABS: Erythrocyte Sedimentation Rate 8 MM/HR (0-15)
[2022-06-13 11:33] LABS: Troponin-I High Sensitivity 117.7 ng/L (<3.5-35.0)
--- NOTE | 2022-06-13 11:58 | PHA.MEDREC ---
Pharmacy Consult ? Medication Reconciliation Pharmacy has completed the medication reconciliation.
[2022-06-13] MEDS: Potassium Chloride Packet 20 MEQ PACKET 40 MEQ PO (12:07)
--- NOTE | 2022-06-13 15:30 | PM.EVENT ---
Event Note Date of Service: 06/13/22 Event Note: Pt seen and examined Consult dictated [facility]Alignant HTN Hypokalemia Dylon on ? CKD COVID Urine tox -ve Added Amlodipine 2.5 daily \Saravanan/ Renin ratio Plasma metanephrins -ve KALE on CTA Repeat UA/ Urine studies Mag level Target BP 150-160 next 24 hrs Gentle hydration I have ordered all the above Thx Will follow
[2022-06-13 16:01] LABS: Magnesium 1.7 mg/dL (1.6-2.6)
[2022-06-13 16:12] LABS: Magnesium 1.9 mg/dL (1.6-2.6)
[2022-06-13] MEDS: amLODIPine Besylate 2.5 MG TABLET PO (16:14)
[2022-06-13 18:07] LABS: Appearance Urine Clear; Color Urine Yellow; Glucose Urine UA 100 mg/dL (Negative); Leukocyte Esterase Urine Negative (Negative); Nitrite Urine Negative (Negative); UMIC TRIGGER UA YES; Urine Blood Moderate (2+) (Negative); Urine Ketones Negative (Negative); Urine Protein 100 (2+) mg/dL (Neg-Trace)
[2022-06-13 18:12] LABS: Bacteria Urine None Seen (None Seen); Hyaline Casts Urine 0-2 /LPF (0-2); RBC Urine >20 /HPF (0-2); Squamous Epithelial Cell Urine 0-2 /HPF (0-2); WBC Urine 0-5 /HPF (0-5)
[2022-06-13 18:26] LABS: Creatinine Urine 107.57 mg/dL; Total Protein Urine Random 59 mg/dL (<12)
--- NOTE | 2022-06-13 18:51 | PC.NURSE ---
Patient transferred from ED this morning on 3 lpm. Covid positive, no respiratory distress, no dyspnea, no cough, no SOB, afebrile. Patient alert and oriented, ambulatory. Epigastric pain had resolved. Urinating without issue in urinal, orange urine. Reported punch colored urine at 330 am 06/12 x7, no recurrence, denies dysuria. Mild headache left side of head resolved spontaneously. Declined tylenol. Denies dizziness. On telemetry, sinus rhythm with known ST depression and ST elevation. troponins trended down, EKG rechecked, ESR and CRP checked and negative. No edema. Transferred upstairs to [facility], report given to Idania.
[2022-06-14] VITALS (7 sets, daily range): BP systolic 157–222; BP diastolic 90–133; PULSE 64–82; RESP 17–20; TEMP 36.5–37.2; O2SAT 94–100; BMI 29.5
--- NOTE | 2022-06-14 01:04 | CONS_ITS ---
DATE OF SERVICE: REASON FOR CONSULTATION: Consult requested by the ICU team to evaluate and help in management of patient with severe hypertension. HISTORY OF PRESENT ILLNESS: The patient is a 41-year-old male without any past medical history who presented to the ER with complaints of hematuria, which started about 3 mornings before presentation. He denies history of kidney stones and occasionally takes ibuprofen. He had epigastric abdominal pain radiating to the left side of his chest and back. There was some nausea. No family history of coronary artery disease. In the ER, patient had significant elevated blood pressure with systolic in 284 and diastolic 178. Heart rate was 117. He got 4 doses of labetalol and his blood pressure decreased to 194/134. He also received Zofran. EKG significant for ST elevation throughout the anterior leads. These changes improved with improvement of blood pressure. He did have a CT scan of the chest, CT of the abdomen and pelvis without any evidence of PE. No evidence of thoracic abdominal aortic aneurysm or dissection. Renal arteries were patent. Lab work showed the patient had a BUN of 35 and creatinine 2.48. There is no baseline creatinine on this patient. He was also hypokalemic with a potassium of 2.6. Renal consult has been requested. The patient has hypertension and hypokalemia. Presently, he is COVID positive and is in a regular unit. He denied using any nasal decongestants or illicit drugs. He denies snoring. He has family history of hypertension in the mother's side. REVIEW OF SYSTEMS: As noted above. Other systems reviewed negative. PAST MEDICAL HISTORY: None significant. PAST SURGICAL HISTORY: Appendectomy. FAMILY HISTORY: Significant for hypertension in the mother's side. PERSONAL AND SOCIAL HISTORY: Patient lives at home. Social drinker. Does not use drugs or tobacco. ALLERGIES: HAS NO KNOWN DRUG ALLERGIES. MEDICATIONS: Outpatient are occasionally NSAIDs. PHYSICAL EXAMINATION: GENERAL: Patient is resting in the bed. Awake, alert, oriented. No significant distress. VITAL SIGNS: Blood pressure was 186/100, pulse 70, afebrile. HEENT: Pupils equal bilaterally to light. Mucosa moist. There is no scleral icterus or conjunctival congestion. NECK: No jugular venous distention is noted. Neck is supple. No thyromegaly is noted. There is no carotid bruit. CARDIOVASCULAR: S1, S2 without rub. RESPIRATORY: Mild decreased in the bases. No crepitation or rhonchi is noted. ABDOMEN: Soft, nontender. No guarding. No rigidity. Bowel sounds are normal. There is no abdominal bruit. EXTREMITIES: No edema. NEURO: Essentially nonfocal. LABORATORY DATA: Done today; WBC 11.5, hemoglobin 10.7, hematocrit 33, platelets were normal. Sodium 141, potassium 3.1, chloride 103, CO2 of 25, BUN 26, creatinine 2.14, estimated GFR 48.6, calcium 7.8, phosphorus 3.4, troponin 117, albumin 3.2. Cortisol level 14.8. TSH was 1.05. Urinalysis shows specific gravity 1.013, protein 300, glucose negative, ketone negative, rbc's more than 20, wbc's is 0-5. Urine tox screen was negative. Serological workup is pending. IMPRESSION: 1. Middle-aged male with malignant hypertension, which is better controlled. 2. Question of baseline hypertension, though patient is unaware of it and was not on any medication. Given hypokalemia, the possibility of hyperadrenalism needs to be ruled out in this patient. The patient does not have any renal artery stenosis based on CT of the abdomen. 3. Hypokalemia with hypertension with the possibility of hyperadrenalism. I do not see a magnesium level. We need to rule out hypomagnesemia. Renal artery stenosis as mentioned before has been ruled out. 4. Acute kidney injury is resolving in the setting of malignant hypertension with nephron damage in the setting of uncontrolled hypertension. 5. Question of chronic kidney disease at baseline. RECOMMENDATIONS: At this juncture, I have taken the liberty to order a repeat urinalysis. I have also ordered spot urine electrolytes, protein and creatinine. In regard to hypertension, I have added amlodipine 2.5 mg to his present regimen. We can increase the dose as needed. We will hold off on FELY inhibitor or ARB at this juncture. The target blood pressure should be 150-160 systolics in the next 24 hours. In regard to acute kidney injury, as imaging studies, which does not have any obstructive uropathy. I agree with gentle hydration for the patient. Serological workup has been ordered and we will follow that. Repeat renal function again in the a.m. We will check PTH level and vitamin D level on this patient. I expect his renal function continue to improve, but we do not have any baseline creatinines on this patient. I have also ordered magnesium level on this patient. We will try to keep his potassium level ranging around 4.0. In regard to workup regarding hypertension, I would do an aldosterone level and plasma renin activity at the same time. We will check marcela-renin ratio. I see aldosterone level without a plasma renin activity, but would prefer to get a ratio. To complete workup, I will also do a plasma metanephrine on this patient. As mentioned before, he does not have renal artery stenosis based on the imaging study. Thank you for allowing me to participate in in medical management of the patient. MD JOSELYN Nolan/LUC / [id number]
[2022-06-14] MEDS: Lactated Ringers 1,000 ML 100 ML IVCONT ×2 (05:36→16:56)
[2022-06-14 08:08] LABS: HBS Num1 130.24 mIU/mL (0-7.99); HBc Num1 0.32 S/CO (0.00-0.79); HBsAGNum1 0.49 S/CO (0.00-0.99); HIV AB/AG Nonreactive (Nonreactive); HIV Num 1 0.07 S/CO (0.00-0.99); Hepatitis B Core Antibody Nonreactive (Nonreactive); Hepatitis B Surface Antigen Negative (Negative); ~HepC Num1 0.08 S/CO (0.00-0.79); ~Hepatitis B Surface Antibody REACTIVE (Nonreactive); ~Hepatitis C Antibody Nonreactive (Nonreactive)
[2022-06-14] MEDS: carvediloL 3.125 MG TABLET PO (08:38)
[2022-06-14] MEDS: amLODIPine Besylate 2.5 MG TABLET PO (08:39)
--- NOTE | 2022-06-14 09:16 | MHC.CM.PN ---
CM spoke with Patient over the phone @ [phone] R/T his Covid (+) status. Patient lives in an apartment with the Mother of his 3 Children and with his 3 Adult Children and he is functionally independent and working as a [employer]. Patient has no PCP and no insurance(a referral has been made to [facility]). Patient has received Moderna/Covid vax X3 and his goal is to return home, self care. [facility]GADO has initiated and will follow for dc planning.
[2022-06-14 11:17] LABS: Complement C3 104 mg/dL (82-185)
--- NOTE | 2022-06-14 11:29 | P.PNNP_ITS ---
Subjective Subjective Date of Service: 06/14/22 Interval history: Seen and examined, events noted Physical Exam Vital Signs: Vital Signs: Last Vital Signs Temp 98.0 F 06/14/22 11:19 Pulse 73 06/14/22 11:19 Resp 20 06/14/22 11:19 BP 189/105 H 06/14/22 11:19 Pulse Ox 94 06/14/22 11:19 O2 Del Method 06/14/22 11:19 O2 Flow Rate 2 06/14/22 03:04 BMI result Body Mass Index 29.5 Const: General: comfortable Resp: Effort & Inspection: normal respiratory effort Objective Data Labs CBC & Chem 7: 06/13/22 06:22 06/13/22 06:22 Labs: Laboratory Results - last 24 hr 06/13/22 06/13/22 06/13/22 08:53 08:53 08:53 Magnesium 1.7 Troponin I High Sens Urine Color Urine Appearance Urine pH Ur Specific [place] Urine Protein Urine Glucose (UA) Urine Ketones Urine Blood Urine Nitrite Ur Leukocyte Esterase Urine RBC Urine WBC Ur Squamous Epith Cells Urine Bacteria Hyaline Casts U Random Total Protein Ur Random Sodium Urine Creatinine Complement C3 104 Complement C4 36 Hep Bs Antigen Negative Hep Bs Antibody REACTIVE Hep B Core Total Ab Nonreactive Hepatitis C Ab (EIA) Nonreactive HIV 1&2 Ab/P24 Ag 4thGn Nonreactive 06/13/22 06/13/22 06/13/22 10:56 15:25 15:25 Magnesium Troponin I High Sens 117.7 H* Urine Color Yellow Urine Appearance Clear Urine pH 7.0 Ur Specific [place] 1.020 Urine Protein 100 (2+) H Urine Glucose (UA) 100 H Urine Ketones Negative Urine Blood Moderate (2+) H Urine Nitrite Negative Ur Leukocyte Esterase Negative Urine RBC >20 H Urine WBC 0-5 Ur Squamous Epith Cells 0-2 Urine Bacteria None Seen Hyaline Casts 0-2 U Random Total Protein 59 H Ur Random Sodium 114.0 Urine Creatinine 107.57 Complement C3 Complement C4 Hep Bs Antigen Hep Bs Antibody Hep B Core Total Ab Hepatitis C Ab (EIA) HIV 1&2 Ab/P24 Ag 4thGn 06/13/22 15:47 Magnesium 1.9 Troponin I High Sens Urine Color Urine Appearance Urine pH Ur Specific [place] Urine Protein Urine Glucose (UA) Urine Ketones Urine Blood Urine Nitrite Ur Leukocyte Esterase Urine RBC Urine WBC Ur Squamous Epith Cells Urine Bacteria Hyaline Casts U Random Total Protein Ur Random Sodium Urine Creatinine Complement C3 Complement C4 Hep Bs Antigen Hep Bs Antibody Hep B Core Total Ab Hepatitis C Ab (EIA) HIV 1&2 Ab/P24 Ag 4thGn Microbiology Microbiology Results: Microbiology 06/12/22 23:36 Blood - Venous Blood Culture - Preliminary No growth after 24 hours. 06/12/22 23:40 Blood - Venous Blood Culture - Preliminary No growth after 24 hours. Procedures Date of Service Date of Service: 06/14/22 Assessment & Plan Assessment and plan (1) Hypertensive emergency, no CHF: Status: Acute (2) Acute renal failure: Status: Acute (3) COVID-19: Status: Acute (4) Hypokalemia: Status: Acute (5) Chest pain at rest: Status: Acute (6) Hematuria: Status: Acute Plan 1. CASSIDY: most c/w HTN crisis with malignnat HTN and renal injury but other poss being r/o with sero and ultimately may need kidney Bx atsome point depending on Scr and serow/u 2. Malignant HTN:sudden onset given no H/O HTN in past; w/u for 2ry causes of HTN KALE r/o by CTA Primary Hyperaldoand pheo w/u in progress 3. Hematuria: GH is unusal presentation for Maliganat HTN 4. HypoK: need to r/o Primary hyperaldo REC: uptitration of BP meds:incr norvasc 5 qd and coreg 6.25; , check sero; possible kidney Bx at some point depending on Scr Time Spent With Patient Time: Total time spent is greater than 50% in coordination of care (as documented) at patient's floor/unit and/or counseling patient: Progress Note: Quality Stroke Does the patient have a stroke diagnosis?: No
--- NOTE | 2022-06-14 11:51 | HO.PM.IMPN ---
Subjective Subjective Date of Service: 06/14/22 Interval History: F/u on malignant HTN, Cassidy interval history: has no chest pain, sob, or dizzines or sob. BP continues to fluctuates at its peak 284/178, presently 189/105. Review of Systems no cp, no sob, Physical Exam Vital Signs: Vital Signs: Last Vital Signs Temp 98.0 F 06/14/22 11:19 Pulse 73 06/14/22 11:19 Resp 20 06/14/22 11:19 BP 189/105 H 06/14/22 11:19 Pulse Ox 94 06/14/22 11:19 O2 Del Method 06/14/22 11:19 O2 Flow Rate 2 06/14/22 03:04 BMI result Body Mass Index 29.5 Objective Data Active Medications Amlodipine Besylate (Amlodipine Besylate 5 Mg Tablet) 5 mg PO DAILY [facility]; Protocol Carvedilol (Carvedilol 3.125 Mg Tablet) 6.25 mg PO BID [facility]; Protocol Lactated Ringer's (Lr) 1,000 mls @ 100 mls/hr IVCONT .Q10H [facility] Last Admin: 06/14/22 05:36 Dose: 100 mls/hr Documented By: ALEXANDRO Labs CBC & Chem 7: 06/13/22 06:22 06/13/22 06:22 Labs: Laboratory Results - last 24 hr 06/13/22 06/13/22 06/13/22 08:53 08:53 08:53 Magnesium 1.7 Urine Color Urine Appearance Urine pH Ur Specific [place] Urine Protein Urine Glucose (UA) Urine Ketones Urine Blood Urine Nitrite Ur Leukocyte Esterase Urine RBC Urine WBC Ur Squamous Epith Cells Urine Bacteria Hyaline Casts U Random Total Protein Ur Random Sodium Urine Creatinine Complement C3 104 Complement C4 36 Hep Bs Antigen Negative Hep Bs Antibody REACTIVE Hep B Core Total Ab Nonreactive Hepatitis C Ab (EIA) Nonreactive HIV 1&2 Ab/P24 Ag 4thGn Nonreactive 06/13/22 06/13/22 06/13/22 15:25 15:25 15:47 Magnesium 1.9 Urine Color Yellow Urine Appearance Clear Urine pH 7.0 Ur Specific [place] 1.020 Urine Protein 100 (2+) H Urine Glucose (UA) 100 H Urine Ketones Negative Urine Blood Moderate (2+) H Urine Nitrite Negative Ur Leukocyte Esterase Negative Urine RBC >20 H Urine WBC 0-5 Ur Squamous Epith Cells 0-2 Urine Bacteria None Seen Hyaline Casts 0-2 U Random Total Protein 59 H Ur Random Sodium 114.0 Urine Creatinine 107.57 Complement C3 Complement C4 Hep Bs Antigen Hep Bs Antibody Hep B Core Total Ab Hepatitis C Ab (EIA) HIV 1&2 Ab/P24 Ag 4thGn Microbiology Microbiology Results: Microbiology 06/12/22 23:36 Blood Culture - Preliminary Blood - Venous No growth after 24 hours. 06/12/22 23:40 Blood Culture - Preliminary Blood - Venous No growth after 24 hours. Assessment and Plan (1) Hematuria: Status: Acute (2) Hypertensive emergency, no CHF: Status: Acute Plan 41/m with no prior h/o of HTN or other issues who presented with abd , n/v and noted to have malignant HTN 284/178, and Creatine of 3.3 presumed new. He was briefly admitted through ICU and required IV meds for stablization of BP, Nephrology has been involved for work and managment. CASSIDY likely from malignant HTN--Cre has improved, Nephrology is doing work up.. continue monitoring.. Malignant HTN--BP is much better albeit not optimal--Presently on Coreg and Norvsc and dose being adjusted slowly.. plasam renin, marcela , SHAWN, pending.. Hep B, C negative. Hypokalemian..normal mag, repeat lab today Positive covid--Assymptomatic Huypo need for inaptient: Acute kidney injry treatment and work up, malignant HTN, meds being adjusted . Quality Stroke Does the patient have a stroke diagnosis?: No VTE Prior VTE?: No VTE Risk Level:: Medical - moderate - high VTE Device Contraindication: N/A - Device Ordered VTE Drug Contraindication: N/A - Med Ordered
[2022-06-14] MEDS: amLODIPine Besylate 5 MG TABLET PO (12:11)
[2022-06-14] MEDS: carvediloL 3.125 MG TABLET 6.25 MG PO ×2 (12:12→21:57)
[2022-06-14 13:16] LABS: Anion Gap 13 (12-20); Blood Urea Nitrogen 30 mg/dL (9-16); Calcium 8.5 mg/dL (8.4-10.2); Carbon Dioxide 29 mmol/L (22-29); Chloride 103 mmol/L (96-108); Creatinine Clr Calc Pharmacy 49.5; Estimated Glomerular Filt Rate 36; Glucose Random 90 mg/dL (60-115); Potassium 3.3 mmol/L (3.3-5.1); Sodium 142 mmol/L (135-145)
[2022-06-14 23:21] LABS: Myeloperoxidase Antibody <1.0 AI; Proteinase 3 PR3 Antibodies <1.0 AI
[2022-06-15] MEDS: Lactated Ringers 1,000 ML 100 ML IVCONT (03:21)
[2022-06-15 03:26] VITALS: BP 170/108; RESP 20; TEMP 36.9; O2SAT 98
[2022-06-15 06:00] VITALS: BMI 29.4
[2022-06-15 07:38] VITALS: BP 190/120; PULSE 74; RESP 20; TEMP 36.8; O2SAT 99
[2022-06-15] MEDS: carvediloL 3.125 MG TABLET 6.25 MG PO (07:42)
[2022-06-15] MEDS: amLODIPine Besylate 5 MG TABLET PO ×2 (07:42→09:48)
--- NOTE | 2022-06-15 10:10 | PC.NURSE ---
Patient still hypertensive, MD aware and PRN orders given as, well as additional 5mg norvasc given. Patient asymptomatic, denies chest pain shortness of breath dizziness n/v, or headache. Will continue to re check bp manually.
--- NOTE | 2022-06-15 10:16 | P.PNIM_ITS ---
Subjective Subjective Date of Service: 06/15/22 Interval History: F/u on malignant HTN, Cassidy interval history: has no chest pain, sob, or dizzines or sob. BP continues to fluctuates at its peak 284/178, presently 190/120 this morning No chest pain Review of Systems no cp, no sob, Physical Exam Vital Signs: Vital Signs: Last Vital Signs Temp 98.2 F 06/15/22 07:38 Pulse 74 06/15/22 07:38 Resp 20 06/15/22 07:38 BP 190/120 H 06/15/22 07:38 Pulse Ox 99 06/15/22 07:38 O2 Del Method 06/15/22 07:38 O2 Flow Rate 2 06/14/22 03:04 BMI result Body Mass Index 29.4 Const: General: comfortable Resp: Effort & Inspection: normal respiratory effort Objective Data Active Medications Amlodipine Besylate (Amlodipine Besylate 10 Mg Tablet) 10 mg PO DAILY [facility]; Protocol Last Admin: 06/15/22 10:12 Dose: Not Given Documented By: PAOLA Non-Admin Reason: already given total of 10mg this AM Carvedilol (Carvedilol 3.125 Mg Tablet) 6.25 mg PO BID [facility]; Protocol Last Admin: 06/15/22 07:42 Dose: 6.25 mg Documented By: MARYLOU Hydralazine HCl (Hydralazine Hcl 20 Mg/Ml Vial) 10 mg IVPUSH Q6H PRN; Protocol PRN Reason: htn Labs CBC & Chem 7: 06/13/22 06:22 06/14/22 12:53 Labs: Laboratory Results - last 24 hr 06/12/22 06/13/22 06/14/22 23:36 08:53 12:53 Anion Gap 13 Estim Creat Clear Calc 49.5 Estimated GFR 36 Random Glucose 90 Calcium 8.5 D Free T3 4.0 Proteinase 3 (PR3) Ab <1.0 Myeloperoxidase Ab <1.0 Complement C3 104 Complement C4 36 Microbiology Microbiology Results: Microbiology 06/12/22 23:36 Blood Culture - Preliminary Blood - Venous No growth after 48 hours. 06/12/22 23:40 Blood Culture - Preliminary Blood - Venous No growth after 48 hours. Assessment and Plan (1) Hematuria: Status: Acute (2) Hypertensive emergency, no CHF: Status: Acute Plan 41/m with no prior h/o of HTN or other issues who presented with abd , n/v and noted to have malignant HTN 284/178, and Creatine of 3.3 presumed new. He was briefly admitted through ICU and required IV meds for stablization of BP, Nephr ology has been involved for work and managment. CASSIDY likely from malignant HTN--Cre has improved, Nephrology is doing work up.. continue monitoring.. Malignant HTN--BP is much better albeit not optimal--Presently on Coreg and Norvsc and dose being adjusted slowly.. plasam renin, marcela , SHAWN, pending.. Hep B, C negative. Hypokalemian..normal mag, resolved Positive covid--Assymptomatic Huypo need for inaptient: Acute kidney injry treatment and work up, malignant HTN, meds being adjusted . Quality Stroke Does the patient have a stroke diagnosis?: No VTE Prior VTE?: No VTE Risk Level:: Medical - moderate - high VTE Device Contraindication: N/A - Device Ordered VTE Drug Contraindication: N/A - Med Ordered
--- NOTE | 2022-06-15 10:29 | PM.PNNEP ---
Subjective Subjective Date of Service: 06/15/22 Interval history: Seen and examined, events noted Physical Exam Vital Signs: Vital Signs: Last Vital Signs Temp 98.2 F 06/15/22 07:38 Pulse 74 06/15/22 07:38 Resp 20 06/15/22 07:38 BP 190/120 H 06/15/22 07:38 Pulse Ox 99 06/15/22 07:38 O2 Del Method 06/15/22 07:38 O2 Flow Rate 2 06/14/22 03:04 BMI result Body Mass Index 29.4 Const: General: comfortable Resp: Effort & Inspection: normal respiratory effort Objective Data Labs CBC & Chem 7: 06/13/22 06:22 06/14/22 12:53 Labs: Laboratory Results - last 24 hr 06/12/22 06/13/22 06/14/22 23:36 08:53 12:53 Sodium 142 Potassium 3.3 Chloride 103 Carbon Dioxide 29 Anion Gap 13 BUN 30 H Creatinine 2.05 H Estim Creat Clear Calc 49.5 Estimated GFR 36 Random Glucose 90 Calcium 8.5 D Free T3 4.0 Proteinase 3 (PR3) Ab <1.0 Myeloperoxidase Ab <1.0 Complement C3 104 Complement C4 36 Microbiology Microbiology Results: Microbiology 06/12/22 23:36 Blood - Venous Blood Culture - Preliminary No growth after 48 hours. 06/12/22 23:40 Blood - Venous Blood Culture - Preliminary No growth after 48 hours. Procedures Date of Service Date of Service: 06/15/22 Assessment & Plan Assessment and plan (1) Hypertensive emergency, no CHF: Status: Acute (2) Acute renal failure: Status: Acute (3) COVID-19: Status: Acute (4) Hypokalemia: Status: Acute (5) Chest pain at rest: Status: Acute (6) Hematuria: Status: Acute Plan 1. CASSIDY: most c/w HTN crisis with malignnat HTN and renal injury but other poss being r/o with sero and ultimately may need kidney Bx atsome point depending on Scr and serow/u thus far sero all neg/normal 2. Malignant HTN:sudden onset given no H/O HTN in past; w/u for 2ry causes of HTN KALE r/o by CTA Primary Hyperaldoand pheo w/u in progress BP remains poorly controlled--will incr BP meds norvasc 10 ; coreg 12.5 and prn hydralazine and start cozaar 50 3. Hematuria: GH is unusal presentation for Maliganant HTN 4. HypoK: need to r/o Primary hyperaldo REC: uptitration of BP meds:norvasc 10 ; coreg 12.5 and prn hydralazine and start cozaar 50; possible kidney Bx at some point depending on Scr will follow with team Time Spent With Patient Time: Total time spent is greater than 50% in coordination of care (as documented) at patient's floor/unit and/or counseling patient: Progress Note: Quality Stroke Does the patient have a stroke diagnosis?: No
[2022-06-15 11:31] VITALS: BP 165/100; PULSE 81; RESP 20; TEMP 36.8; O2SAT 99
[2022-06-15] MEDS: hydrALAZINE HCl 20 MG/ML VIAL 10 MG IVPUSH (11:50)
[2022-06-15 12:48] VITALS: BP 185/109
[2022-06-15 16:00] VITALS: BP 185/100; PULSE 89; RESP 17; TEMP 37; O2SAT 98
--- NOTE | 2022-06-15 16:12 | PC.NURSE ---
1612 Dr. Medina notified of BP 185/100. Patient is asymptomatic and no new orders put in.
[2022-06-15 20:00] VITALS: BP 172/89; PULSE 89; RESP 18; TEMP 37; O2SAT 98
[2022-06-15] MEDS: carvediloL 12.5 MG TABLET PO (21:06)
[2022-06-16] VITALS (7 sets, daily range): BP systolic 158–189; BP diastolic 89–109; PULSE 72–85; RESP 14–20; TEMP 35.9–36.9; O2SAT 95–99; BMI 28.9
[2022-06-16] MEDS: amLODIPine Besylate 10 MG TABLET PO (09:11)
[2022-06-16] MEDS: hydrALAZINE HCl 20 MG/ML VIAL 10 MG IVPUSH (09:11)
[2022-06-16] MEDS: carvediloL 12.5 MG TABLET PO ×2 (09:11→20:18)
--- NOTE | 2022-06-16 10:05 | P.PNIM_ITS ---
Subjective Subjective Date of Service: 06/16/22 Interval History: F/u on malignant HTN, Cassidy interval history: has no chest pain, sob, or dizzines or sob. BP continues to fluctuates at its peak 284/178, presently 189/100 No chest pain Review of Systems no cp, no sob, Physical Exam Vital Signs: Vital Signs: Last Vital Signs Temp 97.7 F 06/16/22 07:24 Pulse 79 06/16/22 07:24 Resp 20 06/16/22 07:24 BP 189/100 H 06/16/22 07:24 Pulse Ox 98 06/16/22 07:24 O2 Del Method 06/16/22 07:24 O2 Flow Rate 2 06/14/22 03:04 BMI result Body Mass Index 28.9 Const: General: comfortable Resp: Effort & Inspection: normal respiratory effort Objective Data Active Medications Amlodipine Besylate (Amlodipine Besylate 10 Mg Tablet) 10 mg PO DAILY [facility]; Protocol Last Admin: 06/16/22 09:11 Dose: 10 mg Documented By: SHANT Carvedilol (Carvedilol 12.5 Mg Tablet) 12.5 mg PO BID [facility]; Protocol Last Admin: 06/16/22 09:11 Dose: 12.5 mg Documented By: SHANT Hydralazine HCl (Hydralazine Hcl 20 Mg/Ml Vial) 10 mg IVPUSH Q6H PRN; Protocol PRN Reason: htn Last Admin: 06/16/22 09:11 Dose: 10 mg Documented By: SHANT Losartan Potassium (Losartan Potassium 50 Mg Tablet) 50 mg PO DAILY [facility]; Protocol Labs CBC & Chem 7: 06/13/22 06:22 06/14/22 12:53 Assessment and Plan (1) Hypokalemia: Status: Acute (2) Hypertensive emergency, no CHF: Status: Acute (3) Acute renal failure: Status: Acute Plan 41/m with no prior h/o of HTN or other issues who presented with abd , n/v and noted to have malignant HTN 284/178, and Creatine of 3.3 presumed new. He was briefly admitted through ICU and required IV meds for stablization of BP, Nephrology has been involved for work and managment. CASSIDY likely from malignant HTN--Cre has improved, Nephrology is doing work up.. continue monitoring CR Malignant HTN--BP is much better albeit not optimal--Presently on Coreg @ 12.5 bid, and Norvsc 10, addubg cozar 50 today and Hydrlazine later if peristently high.. plasam renin, marcela , SHAWN, pending.. Hep B, C negative. Hypokalemian..normal mag, resolved Positive covid--Assymptomatic Huypo need for inaptient: Acute kidney injry treatment and work up, malignant HTN, meds being adjusted . Quality Stroke Does the patient have a stroke diagnosis?: No VTE Prior VTE?: No VTE Risk Level:: Medical - moderate - high VTE Device Contraindication: N/A - Device Ordered VTE Drug Contraindication: N/A - Med Ordered
[2022-06-16] MEDS: Losartan Potassium 50 MG TABLET PO (10:15)
--- NOTE | 2022-06-16 10:32 | PM.PNNEP ---
Subjective Subjective Date of Service: 06/16/22 Interval history: Seen and examined,events noted Physical Exam Vital Signs: Vital Signs: Last Vital Signs Temp 97.7 F 06/16/22 07:24 Pulse 79 06/16/22 07:24 Resp 20 06/16/22 07:24 BP 189/100 H 06/16/22 07:24 Pulse Ox 98 06/16/22 07:24 O2 Del Method 06/16/22 07:24 O2 Flow Rate 2 06/14/22 03:04 BMI result Body Mass Index 28.9 Const: General: comfortable Resp: Effort & Inspection: normal respiratory effort Objective Data Labs CBC & Chem 7: 06/13/22 06:22 06/14/22 12:53 Microbiology Microbiology Results: Microbiology 06/12/22 23:36 Blood - Venous Blood Culture - Preliminary No growth after 48 hours. 06/12/22 23:40 Blood - Venous Blood Culture - Preliminary No growth after 48 hours. Procedures Date of Service Date of Service: 06/16/22 Assessment & Plan Assessment and plan (1) Hypertensive emergency, no CHF: Status: Acute (2) Acute renal failure: Status: Acute (3) COVID-19: Status: Acute (4) Hypokalemia: Status: Acute (5) Chest pain at rest: Status: Acute (6) Hematuria: Status: Acute Plan 1. CASSIDY: most c/w HTN crisis with malignnat HTN and renal injury but other poss being r/o with sero and ultimately may need kidney Bx atsome point depending on Scr and serow/u thus far sero all neg/normal am labs pending 2. Malignant HTN:sudden onset given no H/O HTN in past; w/u for 2ry causes of HTN KALE r/o by CTA Primary Hyperaldoand pheo w/u in progress BP remains poorly controlled--will incr BP meds norvasc 10 ; coreg 12.5 and prn hydralazine and start cozaar 50 3. Hematuria: GH is unusal presentation for Maliganant HTN 4. HypoK: need to r/o Primary hyperaldo REC: check repeat labs; uptitration of BP meds:norvasc 10 ; coreg 12.5 and prn hydralazine and start cozaar 50 once K from this am is back and addd PO hydralazine 25 bid if cont high; possible kidney Bx at some point depending on Scr will follow with team Time Spent With Patient Time: Total time spent is greater than 50% in coordination of care (as documented) at patient's floor/unit and/or counseling patient: Progress Note: Quality Stroke Does the patient have a stroke diagnosis?: No
[2022-06-16 10:37] LABS: Anion Gap 13 (12-20); Blood Urea Nitrogen 25 mg/dL (9-16); Calcium 8.7 mg/dL (8.4-10.2); Carbon Dioxide 26 mmol/L (22-29); Chloride 100 mmol/L (96-108); Creatinine Clr Calc Pharmacy 51.8; Estimated Glomerular Filt Rate 38; Glucose Random 116 mg/dL (60-115); Potassium 3.1 mmol/L (3.3-5.1); Sodium 136 mmol/L (135-145)
--- NOTE | 2022-06-16 13:52 | MHC.CM.PN ---
Per ROUNDS discussion, Patient's BP is elevated and Patient is not yet medically cleared for dc; Home is the goal and CM will continue to follow.
[2022-06-16 20:02] LABS: Anti Nuclear Antibody Screen NEGATIVE (NEGATIVE)
[2022-06-16 20:27] LABS: Complement Total CH50 >60 U/mL (31-60)
[2022-06-17] VITALS (7 sets, daily range): BP systolic 105–181; BP diastolic 80–107; PULSE 67–89; RESP 16–20; TEMP 36.1–36.8; O2SAT 93–98; BMI 28.9
--- NOTE | 2022-06-17 07:00 | CA_ITS ---
Transthoracic Echocardiogram Patient (Last, First, Middle): Frank Agarwal S Gender: Male Date of : 1980 Age: 41 Procedure Date: 06/17/2022 Procedure Type: Transthoracic Echocardiogram Location: [facility] [place] Height: 170.18 cm Weight: 83.46 kg BSA: 1.95 m2 Heart Rate: bpm BP: 159 / 99 mmHg Central Supply Supervisor: ABDON Referring MD: Barb Mckinney MD Symptoms: hypertrophic cardiomyopathy Study Quality: Adequate ECG Rhythm: Sinus Conclusions: - The left ventricular systolic function is normal. The calculated ejection fraction is 62% by biplane method. - There is severely increased left ventricular wall thickness. - No obvious valvular pathology seen on this study. - There is a small circumferential pericardial effusion. Findings Left Ventricle Normal left ventricular cavity size. There is severely increased left ventricular wall thickness. The left ventricular systolic function is normal. The calculated ejection fraction is 62% by biplane method. There is no evidence of regional wall motion abnormalities. Diastolic function is normal for age. LV peak GLS diminished at -11.6%. Right Ventricle Normal right ventricular cavity size and systolic function. Atria Both atria are normal in size. Aortic Valve There is a normal trileaflet aortic valve. There is no aortic valve stenosis. There is no aortic valve regurgitation. Mitral Valve The mitral valve appears normal. There is trace mitral valve regurgitation. There is no mitral valve stenosis. Pulmonic Valve The pulmonic valve is likely normal. Tricuspid Valve Normal tricuspid valve structure. There is trace tricuspid valve regurgitation. There is no evidence of pulmonary hypertension. Great Vessels The asc aorta is normal in size. Venous The inferior vena cava is normal in size and collapses greater than 50% with inspiration. Pericardium/Pleural There is a small circumferential pericardial effusion. There are no definitive echocardiographic findings of tamponade physiology. Prior Study Comparison No prior study available for comparison. Recommendations, Care & Conclusions No obvious valvular pathology seen on this study. Measurements 2D Linear Measurements IVSd: 1.90 0.6-0.9/0.6-1.0 cm LVIDd: 4.45 3.9-5.3/4.2-5.9 cm LVIDd Index: 2.28 2.4-3.2/2.2-3.1 cm/m2 LVIDs: 3.31 2.0-3.6 cm LVPWd: 1.91 0.7-1.1 cm LA Diam: 4.20 2.7-3.8/3.0-4.0 cm LAIDs Index: 2.15 1.5-2.3 cm/m2 LV Mass: 494.46 67-162/88-224 g LV Mass Index: 253.57 43-95/49-115 g/m2 LVOT Diam: 2.30 3.0+(-)1.3 cm 2D Systolic Function EF 4C: 60.60 >55% EF 2C: 60.20 >55% EF BiP: 61.50 >55% Mitral Valve MV Pk E: 0.59 MV PK A: 0.48 MV Decel Time: 202.00 E/A: 1.20 E'Lateral: 5.00 E'Medial: 4.68 E/E' Med: 12.50 E/E' Lat: 11.70 PHT: 59.00 MVA PHT: 3.73 Decel [place]: 2.90 Aortic Valve AoV Pk Lui: 1.61 AoV Mn Lui: 1.10 AoV VTI: 0.29 AoV Pk Grad: 10.00 Aov Mn Grad: 6.00 MYRON Cont.VTI: 3.12 LVOT LVOT Pk Lui: 1.27 LVOT Mn Lui: 0.87 LVOT VTI: 0.22 LVOT Pk Grad: 6.00 LVOT Mn Grad: 3.00 LVOT Diam: 2.30 LVOT Area: 4.15 Diastolic Function MV Pk E: 0.59 MV Pk A: 0.48 E/A: 1.20 E'Medial: 4.68 E/E' Med: 12.50 E' Laterial: 5.00 E/E' Lat: 11.70 Right Ventricle TAPSE (mm): 20.90 TVS' Lui: 12.90 Tricuspid Valve RA Press: 3.00 Great Vessels Aorta Sinus of Valsalva: 3.23 2.0-3.[address] [place]: 2.92 1.7-3.4 cm Ao Asc: 3.10 2.1-3.4 cm Updated in Other Vendor System with Status of Final Boyd Arteaga MD electronically signed on 06/18/2022 8:52:40 AM with status of Final
[2022-06-17] MEDS: amLODIPine Besylate 10 MG TABLET PO (08:28)
[2022-06-17] MEDS: carvediloL 12.5 MG TABLET PO ×2 (08:28→20:23)
[2022-06-17] MEDS: Losartan Potassium 50 MG TABLET PO (08:30)
[2022-06-17] MEDS: Potassium Chloride ER 20 MEQ TAB.ER.PRT 40 MEQ PO (10:15)
--- NOTE | 2022-06-17 11:45 | PM.PNNEP ---
Subjective Subjective Date of Service: 06/17/22 Interval history: Seen and examined,events noted Physical Exam Vital Signs: Vital Signs: Last Vital Signs Temp 98 F 06/17/22 11:42 Pulse 77 06/17/22 11:42 Resp 18 06/17/22 11:42 BP 159/99 H 06/17/22 11:42 Pulse Ox 98 06/17/22 11:42 O2 Del Method 06/17/22 11:42 O2 Flow Rate 2 06/14/22 03:04 BMI result Body Mass Index 28.9 Const: General: comfortable Resp: Effort & Inspection: normal respiratory effort Objective Data Labs CBC & Chem 7: 06/13/22 06:22 06/16/22 10:09 Labs: Laboratory Results - last 24 hr 06/13/22 06/13/22 08:53 08:53 SHAWN Screen NEGATIVE Tot Complement (CH50) >60 H Microbiology Microbiology Results: Microbiology 06/12/22 23:36 Blood - Venous Blood Culture - Preliminary No growth after 48 hours. 06/12/22 23:40 Blood - Venous Blood Culture - Preliminary No growth after 48 hours. Procedures Date of Service Date of Service: 06/17/22 Assessment & Plan Assessment and plan (1) Hypertensive emergency, no CHF: Status: Acute (2) Acute renal failure: Status: Acute (3) COVID-19: Status: Acute (4) Hypokalemia: Status: Acute (5) Chest pain at rest: Status: Acute (6) Hematuria: Status: Acute Plan 1. CASSIDY: most c/w HTN crisis with malignnat HTN and renal injury but other poss being r/o with sero and ultimately may need kidney Bx atsome point depending on Scr and serow/u thus far sero all neg/normal K reamins low --definite concern for primary hyperaldo---w/u sent and results still pending 2. Malignant HTN:sudden onset given no H/O HTN in past; w/u for 2ry causes of HTN KALE r/o by CTA Primary Hyperaldoand pheo w/u in progress BP better but remains poorly controlled--will incr BP meds norvasc 10 ; coreg 12.5; cozaar 100 and add hydralazine 25 tid 3. Hematuria: GH is unusal presentation for Maliganant HTN 4. HypoK: need to r/o Primary hyperaldo REC: cont uptitration of BP medsas noted above; possible kidney Bx at some point depending on Scr as outpt ; ok to d/c with close outpt f/u if SBP < 160 and DBP < 95 on incr BP meds I will arrange f/u wiht me will follow with team Time Spent With Patient Time: Total time spent is greater than 50% in coordination of care (as documented) at patient's floor/unit and/or counseling patient: Progress Note: Quality Stroke Does the patient have a stroke diagnosis?: No
--- NOTE | 2022-06-17 12:29 | P.CONCA_ITS ---
History of Present Illness History of Present Illness Date of Service: 06/17/22 Chief complaint: HTN EMERGENCY, CASSIDY Narrative: This is a cardiology consultation regarding abnormal EKG as well as elevated troponins. Patient states that he really does not have any medical issues just prior to his admission. He was not aware of any high blood pressure problems or in fact anything at all of concern. He was active without limitations. Then apparently, there was blood in the urine and that led to the hospitalization. Upon arrival, blood pressure was extremely high. It was 284/178 mm Hg. Subsequently, he was admitted to ICU and managed. Now he is in the floor. He states he is feeling fine. He does not have any symptoms like chest pain or shortness of breath or in fact anything cardiac related at all. Of note, he was also positive for COVID upon arrival but patient states he never had any symptoms and he was in fact surprised to note that he was COVID positive. Review of Systems Review of Systems: Yes all other systems are reviewed and are negative Constitutional: Constitutional: Reports as per HPI Eyes: Eyes: Reports as per HPI ENT: Reports as per HPI Cardiovascular: Cardiovascular: Reports as per HPI, Denies acrocyanosis, Denies cool extremities, Denies chest pain, Denies leg edema, Denies l ightheadedness, Denies palpitations and Denies dyspnea Respiratory: Respiratory: Reports as per HPI, Reports no additional respiratory complaints and Denies dyspnea Gastrointestinal: Gastrointestinal: Reports as per HPI and Reports no additional gastrointestinal complaints Genitourinary: Genitourinary: Reports no additional male genitourinary complaints and Reports as per HPI Musculoskeletal: Musculoskeletal: Reports no additional musculoskeletal complaints and Reports as per HPI Integumentary/Breasts: Skin/Breast: Reports system reviewed and no additional complaints, except as docu Neurologic: Reports system reviewed and no additional complaints, except as documented and Reports as per HPI Psychiatric: Psychiatric: Reports no additional psychiatric complaints and Reports as per HPI Endocrine: Endocrine: Reports no additional endocrine complaints, Reports as per HPI and Denies palpitations Hematologic/Lymphatic: Hematologic/Lymphatic: Reports no additional hematologic/lymphatic complaints and Reports as per HPI Allergic/Immunologic: Allergic/Immunologic: Reports no additional allergic/immunologic complaints and Reports as per HPI PMFSH Past Medical History Cognitive capacity: According to patient, no past medical issues before his admission. Family History Family History (Updated 06/17/22 @ 13:47 by Boyd Arteaga MD) Brother Hypertension Mother Diabetes Social History Social History Household Members: Significant Other and Family Housing: House Do you presently have visiting nurse or other home services: No Alcohol intake: never Patient Tobacco Use Status: Never used Tobacco e-Cigarette/Vaping Use: Never Used service: No Meds Allergies Allergy/AdvReac Type Severity Reaction Status Date / Time No Known Allergies Allergy Mild NONE Unverified 06/12/20 15:14 Active Medications: Current Medications Amlodipine Besylate (Amlodipine Besylate 10 Mg Tablet) 10 mg PO DAILY ISA; Protocol Last Admin: 06/17/22 08:28 Dose: 10 mg Carvedilol (Carvedilol 12.5 Mg Tablet) 12.5 mg PO BID ISA; Protocol Last Admin: 06/17/22 08:28 Dose: 12.5 mg Hydralazine HCl (Hydralazine Hcl 20 Mg/Ml Vial) 10 mg IVPUSH Q6H PRN; Protocol PRN Reason: htn Last Admin: 06/16/22 09:11 Dose: 10 mg Hydralazine HCl (Hydralazine Hcl 25 Mg Tablet) 25 mg PO TID ISA; Protocol Losartan Potassium (Losartan Potassium 50 Mg Tablet) 100 mg PO DAILY ISA; Protocol Home Medications Medication Instructions Recorded Confirmed Last Taken Type acetaminophen 500 mg tablet 1,000 mg PO Q6H PRN Pain 06/13/22 06/13/22 06/10/22 History Physical Exam Vital Signs: Vital Signs: Last Vital Signs Temp 98 F 06/17/22 11:42 Pulse 77 06/17/22 11:42 Resp 18 06/17/22 11:42 BP 159/99 H 06/17/22 11:42 Pulse Ox 98 06/17/22 11:42 O2 Del Method 06/17/22 11:42 O2 Flow Rate 2 06/14/22 03:04 BMI result Body Mass Index 28.9 Const: General: comfortable and no acute distress Orientation/ consciousness: patient oriented x3 HEENT: Other: Unremarkable Head: Yes normal to inspection Neck: Neck: Yes normal visual inspection Chest: Chest palpation & inspection: normal inspection of the chest Resp: Auscultation: clear to auscultation bilaterally Cardio: Palpation: normal PMI Heart sounds: S1 normal heart sound present, S2 normal heart sound present, no gallops, no murmurs and no rubs GI: Palpation (GI): Soft to palpation Back/Spine/Pelvis: Other: unremarkable Skin: General skin exam: no rashes or lesions noted Neuro: General: patient oriented x3 Extrem: General: Yes normal to inspection Psych: Mental Status: mental status grossly normal Objective Labs and Meds Result diagrams: 06/13/22 06:22 06/17/22 13:14 Lab results: Laboratory Results - last 24 hr 06/13/22 06/13/22 08:53 08:53 SHAWN Screen NEGATIVE Tot Complement (CH50) >60 H ECG Interpretation: EKG shows left ventricular hypertrophy with strain pattern. Slight QT prolongation P Assessment and Plan (1) Hypertensive emergency, no CHF: Status: Acute (2) Acute renal failure: Status: Acute (3) Elevated troponin I level: Status: Acute (4) COVID-19: Status: Acute Plan Blood pressure as high as 284/178 upon arrival. Today's blood pressure is 159/99 mm Hg. More than likely, he has had high blood pressure not previously diagnosed for a long time. That will explain the EKG changes. Also BUN/creatin ine are quite abnormal and Renal is following in that regard. Elevated troponins are more than likely from uncontrolled blood pressure and renal failure. Much less likely to be a primary coronary event. He has absolutely no symptoms at all. At this time, no specific management further troponins. Focus should be mainly on blood pressure control. Current list includes carvedilol, hydralazine, lo sartan, amlodipine. These seem very appropriate in this gentleman. As an outpatient, probably further uptitrate. Otherwise, can start with an echocardiogram for assessing cardiac function, degree of left ventricular hypertrophy and diastolic dysfunction. Eventually, could consider a stress test as an outpatient. Discussed with Dr. Khan. Procedures Date of Service Date of Service: 06/17/22
[2022-06-17] MEDS: Losartan Potassium 50 MG TABLET 100 MG PO (12:59)
[2022-06-17 13:43] LABS: Anion Gap 16 (12-20); Blood Urea Nitrogen 33 mg/dL (9-16); Calcium 8.9 mg/dL (8.4-10.2); Carbon Dioxide 25 mmol/L (22-29); Chloride 102 mmol/L (96-108); Creatinine Clr Calc Pharmacy 44.8; Estimated Glomerular Filt Rate 32; Glucose Random 122 mg/dL (60-115); Potassium 3.7 mmol/L (3.3-5.1); Sodium 139 mmol/L (135-145)
--- NOTE | 2022-06-17 15:53 | HO.PM.IMPN ---
Subjective Subjective Date of Service: 06/17/22 Interval History: being followed for hypertensive emergency, patient feeling better denies chest pain, no palpitation denies headache lightheadedness or dizziness. Blood pressure improved, patient denies visual symptoms no neuro logical symptoms of speech impairment Will no weakness, no numbness. No acute events overnight. Review of Systems Review of Systems: Yes all other systems are reviewed and are negative Physical Exam Vital Signs: Vital Signs: Last Vital Signs Temp 98.3 F 06/17/22 15:29 Pulse 87 06/17/22 15:29 Resp 17 06/17/22 15:29 BP 181/107 H 06/17/22 15:29 Pulse Ox 97 06/17/22 15:29 O2 Del Method 06/17/22 15:29 O2 Flow Rate 2 06/14/22 03:04 BMI result Body Mass Index 28.9 Const: Other: General Awake alert, resting comfortably in no acute distress. Neck supple no JVD. CVS regular rate rhythm, Respiratory lungs clear to auscultation, no respiratory distress, no wheeze, no rhonchi. Gastrointestinal abdomen soft, nontender, bowel sounds audible, no guarding , no rigidity. Extremities no edema. Neuro nonfocal psych appropriate affect Objective Data Active Medications Amlodipine Besylate (Amlodipine Besylate 10 Mg Tablet) 10 mg PO DAILY [facility]; Protocol Last Admin: 06/17/22 08:28 Dose: 10 mg Documented By: DEN Carvedilol (Carvedilol 12.5 Mg Tablet) 12.5 mg PO BID ISA; Protocol Last Admin: 06/17/22 08:28 Dose: 12.5 mg Documented By: DEN Hydralazine HCl (Hydralazine Hcl 20 Mg/Ml Vial) 10 mg IVPUSH Q6H PRN; Protocol PRN Reason: htn Last Admin: 06/16/22 09:11 Dose: 10 mg Documented By: SHANT Hydralazine HCl (Hydralazine Hcl 25 Mg Tablet) 25 mg PO TID [facility]; Protocol Losartan Potassium (Losartan Potassium 50 Mg Tablet) 100 mg PO DAILY ISA; Protocol Last Admin: 06/17/22 12:59 Dose: 100 mg Documented By: DEN Labs CBC & Chem 7: 06/13/22 06:22 06/17/22 13:14 Labs: Laboratory Results - last 24 hr 06/13/22 06/13/22 06/17/22 08:53 08:53 13:14 Anion Gap 16 Estim Creat Clear Calc 44.8 Estimated GFR 32 Random Glucose 122 H Calcium 8.9 SHAWN Screen NEGATIVE SHAWN Titer TNP SHAWN Titer 2 TNP SHAWN Titer 3 TNP SHAWN Pattern TNP SHAWN Pattern 2 TNP SHAWN Pattern 3 TNP Tot Complement (CH50) >60 H Assessment and Plan (1) Hypokalemia: Status: Acute (2) Hypertensive emergency, no CHF: Status: Acute (3) Acute renal failure: Status: Acute Plan 41/m with no prior h/o of HTN or other issues who presented with abd , n/v and noted to have malignant HTN 284/178, and Creatine of 3.3 presumed new. He was briefly admitted through ICU and required IV meds for stablization of BP, Nephrology has been involved for work and managment. CASSIDY likely from malignant HTN, creatinine remains elevated, serology workup negative patient may need kidney biopsy at some point depending on creatinine being followed closely by Dr. Hernández follow BMP Malignant HTN--BP remains elevated continue Coreg 12.5 bid, Norvsc 10, will increase dose of Cozaar to 100 mg, Nephro added hydralazine, CTA showed no renal artery stenosis, workup in progress for pheochromocytoma and primary hyperaldosteronism Hypokalemia.. will replace potassium and follow Lab, need to rule out for primary hyperaldosteronism Positive covid--Assymptomatic hematuria resolved elevated troponin abnormal EKG obtained Cardio consultation case discussed with Dr. Arteaga he feels abnormal EKG related to malignant hypertension will obtain echocardiogram since patient asymptomatic pursue outpatient stress study will check lipid profile DVT prophylaxis recommend early ambulation need for inaptient: elevated troponin need further workup as well as need continued monitoring and treatment for CASSIDY and malignant hypertension. . Quality Stroke Does the patient have a stroke diagnosis?: No VTE Prior VTE?: No VTE Risk Level:: Medical - moderate - high VTE Device Contraindication: N/A - Device Ordered VTE Drug Contraindication: N/A - Med Ordered
[2022-06-17] MEDS: hydrALAZINE HCl 25 MG TABLET PO ×2 (15:57→20:23)
[2022-06-17] MEDS: polyethylene glycoL 3350 17 GM POWD.PACK PO (23:14)
[2022-06-18 03:51] VITALS: BP 136/86; PULSE 67; RESP 18; TEMP 36.4; O2SAT 95
[2022-06-18 06:00] VITALS: BMI 29.5
[2022-06-18 07:06] LABS: Anion Gap 14 (12-20); Blood Urea Nitrogen 29 mg/dL (9-16); Calcium 8.8 mg/dL (8.4-10.2); Carbon Dioxide 25 mmol/L (22-29); Chloride 105 mmol/L (96-108); Cholesterol 193 mg/dL; Creatinine Clr Calc Pharmacy 51.2; Estimated Glomerular Filt Rate 37; Glucose Random 91 mg/dL (60-115); HDL Cholesterol 40 mg/dL; LDL Cholesterol Calculated 134 mg/dl; Potassium 3.6 mmol/L (3.3-5.1); Sodium 140 mmol/L (135-145); Triglycerides 99 mg/dL
[2022-06-18 07:34] VITALS: BP 160/89; PULSE 77; RESP 17; TEMP 37.1; O2SAT 99
[2022-06-18] MEDS: hydrALAZINE HCl 25 MG TABLET PO (08:49)
[2022-06-18] MEDS: amLODIPine Besylate 10 MG TABLET PO (08:49)
[2022-06-18] MEDS: Losartan Potassium 50 MG TABLET 100 MG PO (08:49)
[2022-06-18] MEDS: carvediloL 12.5 MG TABLET PO (08:50)
--- NOTE | 2022-06-18 10:21 | MHC.CM.PN ---
Home continues to be the goal and CM continues to follow.
--- NOTE | 2022-06-18 11:40 | P.PNCA_ITS ---
Subjective Subjective Date of Service: 06/18/22 Interval history: He states that he feels fine. No cardiac symptoms at this time. Review of Systems Review of Systems Yes all other systems are reviewed and are negative Constitutional: Reports as per HPI Eyes: Reports as per HPI Reports as per HPI Cardiovascular: Reports as per HPI, Denies acrocyanosis, Denies cool extremities, Denies chest pain, Denies leg edema, Denies lightheadedness, Denies palpitations and Denies dyspnea Respiratory: Reports as per HPI, Reports no additional respiratory complaints and Denies dyspnea Gastrointestinal: Reports as per HPI and Reports no additional gastrointestinal complaints Genitourinary: Reports no additional male genitourinary complaints and Reports as per HPI Musculoskeletal: Reports no additional musculoskeletal complaints and Reports as per HPI Skin/Breast: Reports system reviewed and no additional complaints, except as docu Reports system reviewed and no additional complaints, except as documented and Reports as per HPI Psychiatric: Reports no additional psychiatric complaints and Reports as per HPI Endocrine: Reports no additional endocrine complaints, Reports as per HPI and Denies palpitations Hematologic/Lymphatic: Reports no additional hematologic/lymphatic complaints and Reports as per HPI Allergic/Immunologic: Reports no additional allergic/immunologic complaints and Reports as per HPI Physical Exam Vital Signs: Last Vital Signs Temp 98.7 F 06/18/22 07:34 Pulse 77 06/18/22 07:34 Resp 17 06/18/22 07:34 BP 160/89 H 06/18/22 07:34 Pulse Ox 99 06/18/22 07:34 O2 Del Method 06/18/22 07:34 O2 Flow Rate 2 06/14/22 03:04 BMI result Body Mass Index 29.5 Const General: comfortable and no acute distress Orientation/consciousness: patient oriented x3 HEENT Other: Unremarkable Head: Yes normal to inspection Neck Neck: Yes normal visual inspection Chest Chest palpation & inspection: normal inspection of the chest Resp Auscultation: clear to auscultation bilaterally Cardio Palpation: normal PMI Heart sounds: S1 normal heart sound present, S2 normal heart sound present, no gallops, no murmurs and no rubs GI Palpation (GI): Soft to palpation Back/Spine/Pelvis Other: unremarkable Skin General skin exam: no rashes or lesions noted Neuro General: patient oriented x3 Extrem General: Yes normal to inspection Psych Mental Status: mental status grossly normal Objective Labs and Meds Result diagrams: 06/13/22 06:22 06/18/22 06:18 Lab results: Laboratory Results - last 24 hr 06/13/22 06/17/22 06/18/22 08:53 13:14 06:18 Sodium 139 140 Potassium 3.7 3.6 Chloride 102 105 Carbon Dioxide 25 25 Anion Gap 16 14 BUN 33 H 29 H Creatinine 2.24 H 1.98 H Estim Creat Clear Calc 44.8 51.2 Estimated GFR 32 37 Random Glucose 122 H 91 Calcium 8.9 8.8 Triglycerides 99 Cholesterol 193 LDL Cholesterol, Calc 134 HDL Cholesterol 40 SHAWN Titer TNP SHAWN Titer 2 TNP SHAWN Titer 3 TNP SHAWN Pattern TNP SHAWN Pattern 2 TNP SHAWN Pattern 3 TNP Progress Note: A&P Assessment and plan (1) Hypertensive emergency, no CHF: Status: Acute (2) Elevated troponin I level: Status: Acute (3) Left ventricular hypertrophy: Status: Acute (4) Acute renal failure: Status: Acute (5) COVID-19: Status: Acute Plan Based on EKG as well as echocardiogram, he clearly has left ventricular hypertrophy. Hence it seems that his hypertension may be more rather longstan ding and not acute. He is currently on combination of carvedilol, losartan, hydralazine and amlodipi ne. These can be continued. Blood pressures are better than admission but definitely not optimal. Will need to be managed rather as an outpatient as all these medications are new to him. With regard to the etiology for LVH, probably all hypertension. However, also need to assess for other etiologies like amyloid. Workup for this as an outpatient. With regard to the elevated troponins, likely all from hypertension. With regard to CAD workup, consider stress test as an outpatient. Follow-up will be arranged. Discussed with Dr. Khan. Time Spent With Patient Time: Total time spent is greater than 50% in coordination of care (as documented) at patient's floor/unit and/or counseling patient: 35min. Progress Note: Quality Stroke Does the patient have a stroke diagnosis?: No Procedures Date of Service Date of Service: 06/18/22
[2022-06-18 12:00] VITALS: BP 165/90; PULSE 75; RESP 17; TEMP 36.7; O2SAT 99
--- NOTE | 2022-06-18 12:18 | P.DS_ITS ---
DS: Providers Provider Date of Service: 06/18/22 Date of admission: 06/13/22 04:57 Primary care physician: None Physician Consults: 06/13/22 07:38 Consult to Nephrology Routine Consulting Provider: King Coyne Reason for consultation: malignant hypertension/CASSIDY Has provider been notified: Yes 06/17/22 11:08 Consult to Cardiology Routine Consulting Provider: Boyd Arteaga Reason for consultation: abnormal ekg and trop Has provider been notified: No DS: Diagnosis Discharge Diagnosis (1) Hypertensive emergency, no CHF: Status: Acute (2) Elevated troponin I level: Status: Acute (3) Left ventricular hypertrophy: Status: Acute (4) Acute renal failure: Status: Acute (5) COVID-19: Status: Acute DS: Summary Hospital Course Hospital Course: history of presenting illness HPI:??41-year-old male without a past medical history presents to us via consult from the emergency room given significant hypertension, troponin abnormality.? The patient had come to the emergency room with complaints of hematuria which started about 3 in the morning on 06/12/2022, denies history of kidney stones, he does take some ibuprofen every now and then. ?Patient presented to the emergency room with complaints of hematuria, epigastric abdominal pain radiating to the left side of his chest and back, rated 9/10 at its worse, associated with nausea, nothing made it better and he cannot identify anything making it worse.? There is no family history of coronary artery disease.? Patient denies any lightheadedness or dizziness, arm or jaw pain, shortness of breath, palpitations, no recent traveling. In the ER he was significantly hypertensive on arrival with blood pressure of 284/178, heart rate of 117, respiratory rate 16, O2 sat 98% on room air, temperature 98 degrees point 1, he received a total of 4 doses of labetalol with total dose of 90 mg IV decreasing his blood pressure to 194/134.? He also received Zofran and 0.5 mg of Dilaudid, full-dose aspirin. ?The patient's EKG is significant for ST elevations throughout the anterior leads with ST depressions throughout the lateral leads followed by a repeat EKG which shows the same changes although to a lesser degree approximately 1-1/2 hours apart.? Again the patient has had no direct chest discomfort or shortness of breath. He did have a chest CT , abdomen pelvis CTA there is no evidence of PE, there is patchy opacities in the superior segment of the right upper lobe, no evidence of thoracic abdominal aortic aneurysm or dissection.? All the abdominal aortic branches and bifurcations are all patent without any aneurysms.? No acute process of the abdomen. His laboratory showed a white count 10.6, H&H of 13.140.1 respectively with an MCV of 72.9, platelets 189.? Sodium 139, potassium 2.6 for which replacement was given, BUN 35, creatinine 2.48 (no baseline available) lactic acid 0.9 iron profile 0.? Initial troponin 168.1 followed by 2nd troponin 3 hours later at 185.6. Currently patient feels much better, he does have gross hematuria but no longer has the above-mentioned epigastric/left chest, back pain.? He is COVID positive. ?U tox completely negative. The initial plan was to transfer him to [facility] but in light of his COVID positive result, this was not possible, we were asked to see the patient for possible admission to the ICU. hospital course 41/m with no prior h/o of HTN or other issues who presented with abd , n/v and noted to have malignant HTN? 284/178, and Creatinine of 3.3 presumed new. He was briefly admitted through ICU and required IV meds for stablization of BP, and subsequently transferred to intermediate care unit for continued monitoring and treatment for elevated troponin, malignant hypertension CASSIDY and COVID-19 infection. Assessment and plan CASSIDY likely from malignant HTN, creatinine gradually trending down, from 3.05- 1.98,serology workup negative , further workup for hyperaldosteronism is pending, cryoglobulin is pending,patient may need kidney biopsy at some point depending on creatinine, recommend outpatient follow-up with Dr. Hernández, follow BMP as outpatient. Malignant HTN--BP? remains elevated?but improved continue Coreg 12.5 bid, Norvsc 10,?Cozaar to 100 mg, and hydralazine 25 mg t.i.d.,? CTA showed no renal artery stenosis, workup in progress for pheochromocytoma and primary hyperaldosteronism. Hypokalemia. resolved workup for primary hyperaldosteronism is pending Covid positive patient remained asymptomatic with no hypoxia hematuria resolved with no recurrence elevated troponin abnormal EKG? seen by Cardiology they felt it is related to malignant hypertension and echocardiogram was obtained that showed no wall motion abnormality, normal EF and diastolic function patient noted to have left ventricular hypertrophy recommended close outpatient follow-up with dr Arteaga lipid profile showed an LDL of 134 and total cholesterol of 193 Time Spent with Patient Time attestation: Total time spent providing and/or coordinating discharge services: Discharge coordination time: Greater than 30 minutes Quality: Safe Use of Opioids Does Pt have an Active Cancer Diagnosis on the Problem List?: No Quality: Stroke Does the patient have a stroke diagnosis?: No Physical Exam Vital Signs: Vital Signs: Last Vital Signs Temp 98.7 F 06/18/22 07:34 Pulse 77 06/18/22 07:34 Resp 17 06/18/22 07:34 BP 160/89 H 06/18/22 07:34 Pulse Ox 99 06/18/22 07:34 O2 Del Method 06/18/22 07:34 O2 Flow Rate 2 06/14/22 03:04 BMI result Body Mass Index 29.5 Const: Other: General ? Awake alert, resting comfortably in no acute distress.? Neck supple no JVD. CVS? regular rate rhythm, Respiratory lungs clear to auscultation, no respiratory distress, no wheeze, no rhonchi. Gastrointestinal abdomen soft, nontender, bowel sounds audible, no guarding , no rigidity. Extremities no? edema. Neuro nonfocal psych appropriate affect DS: Data Data Completed and Pending Labs on day of discharge: Laboratory Results - last 24 hr 06/13/22 06/17/22 06/18/22 08:53 13:14 06:18 Sodium 139 140 Potassium 3.7 3.6 Chloride 102 105 Carbon Dioxide 25 25 Anion Gap 16 14 BUN 33 H 29 H Creatinine 2.24 H 1.98 H Estim Creat Clear Calc 44.8 51.2 Estimated GFR 32 37 Random Glucose 122 H 91 Calcium 8.9 8.8 Triglycerides 99 Cholesterol 193 LDL Cholesterol, Calc 134 HDL Cholesterol 40 SHAWN Titer TNP SHAWN Titer 2 TNP SHAWN Titer 3 TNP SHAWN Pattern TNP SHAWN Pattern 2 TNP SHAWN Pattern 3 TNP Discharge Plan Discharge Patient Disposition: Home, Self-Care Discharge Diagnosis: malignant hypertension acute kidney injury hypokalemia hematuria elevated troponin left ventricular hypertrophy COVID-19 infection Referrals: Physician,None [Primary Care Provider] - 1 Week Discharge Medications: New losartan 50 mg Tablet 100 mg PO DAILY Qty: 30 0RF Protocol: Hold for SBP< HOLD for SBP < : 90 carvedilol 12.5 mg Tablet 12.5 mg PO BID Qty: 60 0RF Protocol: Hold for SBP/HR < HOLD for SBP < : 90 HOLD for HR < : 60 amlodipine 10 mg Tablet 10 mg PO DAILY Qty: 30 0RF Protocol: Hold for SBP< HOLD for SBP < : 90 hydralazine 25 mg Tablet 25 mg PO TID Qty: 90 0RF Protocol: Hold for SBP< HOLD for SBP < : 90 Continued acetaminophen 500 mg Tablet 1,000 mg PO Q6H PRN (Reason: Pain) Discharge Orders: Discharge Order (Routine); Ordered 06/18/22 Ordered By: Rui Khan Diet: Low fat, low cholesterol Activity on Discharge: As tolerated Stand Alone Forms: Patient Portal Discharge page Care Plan Goals: hypertensive emergency, blood pressure improved continue all blood pressure medications as prescribed follow-up with Nephrology Dr. Toby Hernández in next 1-2 weeks follow-up with Dr. Arteaga from Cardiology in next 1-2 weeks or as arranged by computer methods analyst return to [facility] with chest pain, shortness of breath headache or dizziness Health Concerns: hypertension uncontrolled take medications as prescribed Plan of Treatment: list of primary care physicians given to the patient recommend to call for an appointment in next 1-2 weeks, need close follow-up with primary care physician, computer methods analyst Dr. Arteaga and commercial teller Dr. Toby Hernández Assessment: as above
--- NOTE | 2022-06-18 12:23 | MHC.CM.PN ---
pt mt home with no skilled servcei ordred by
--- NOTE | 2022-06-18 12:44 | MHC.CM.PN ---
pcp list given to pt
[2022-06-18 12:47] LABS: Metanephrine, Free 56 pg/mL (<=57); Normetanephrines, Free 117 pg/mL (<=148); Total Metanephrine, Free 173 pg/mL (<=205)
[2022-06-21 16:57] LABS: Cryoglobulin, Qual NONE DETECTED ((NDT))
[2022-06-22 05:37] LABS: Aldosterone/Renin Ratio 3.2 Ratio (0.9-28.9); Plasma Renin Activity 0.93 ng/mL/h (0.25-5.82)
== END 2022-06-18 14:00 | disposition home or self-care (01) | DRG 304 ==
LOC: HO.ED 22:29 → HO.EDOVER 06-13 05:22 → HO.ICU 06-13 05:35 → HO.IMC 06-13 12:40
PROVIDERS: Internal Medicine; Internal Medicine Nephrology; Physician Assistant Medical; Admitting Provider Internal Medicine Cardiovascular Disease; Emergency Provider Emergency Medicine Emergency Medical Services; Visit Provider Hospitalist
DX: I16.1 Hypertensive emergency (principal); U07.1 COVID-19; N17.9 Acute kidney failure, unspecified; D35.00 Benign neoplasm of unspecified adrenal gland; E26.9 Hyperaldosteronism, unspecified; I10 Essential (primary) hypertension; R31.0 Gross hematuria; E87.6 Hypokalemia; R79.89 Other specified abnormal findings of blood chemistry
CPT/HCPCS: 36415; 71275; 74174; 80048; 80053; 80061; 80307; 81001; 82088; 82533; 82565; 82595; 83540; 83605; 83690; 83735; 83835; 84100; 84145; 84156; 84300; 84443; 84481; 84484; 85025; 85652; 86021; 86038; 86039; 86140; 86160; 86162; 86704; 86706; 86803; 87040; 87340; 87389; 87635; 93005; 93306; 93356; 99285; J1170; J2405; Q9967

== ENCOUNTER 2022-07-20 13:31 | Outpatient (REF) | payer OTHER, SELFPAY ==
[2022-07-20 13:49] LABS: MANUAL DIFF FLAG NO
[2022-07-20 14:08] LABS: Basophils Absolute Auto 0.1 X10*3/uL (0.0-0.2); Basophils Percent Auto 0.8 % (0-2); Eosinophils Absolute Auto 0.2 X10*3/uL (0.0-0.4); Eosinophils Percent Auto 2.2 % (0-4); Hematocrit 38.2 % (42.0-52.0); Hemoglobin 12.3 g/dl (14.0-18.0); Imm Gran Abs Auto 0.03 X10*3/uL (0.00-0.03); Imm Gran Pct Auto 0.4 % (0.0-0.4); Lymphocytes Absolute Auto 1.9 X10*3/uL (1.2-4.9); Mean Corpuscular HGB Conc 32.2 g/dl (31.0-36.0); Mean Corpuscular Hemoglobin 24.6 pg (27.0-33.0); Mean Corpuscular Volume 76.2 fL (80.0-98.0); Mean Platelet Volume 9.4 fL (9.4-12.4); Monocytes Absolute Auto 0.7 X10*3/uL (0.1-1.2); Monocytes Percent Auto 9.4 % (2-11); Neutrophils Absolute Auto 4.7 x10*3/uL (2.0-8.3); Neutrophils Percent Auto 62.2 % (45-73); Platelet Count 319 X10*3/uL (160-400); Red Blood Count 5.01 X10*6/uL (4.60-5.80); Red Cell Distribution Width 15.7 % (11.0-16.0); White Blood Count 7.6 X10*3/uL (4.8-10.8)
[2022-07-20 14:45] LABS: Albumin Level 4.5 g/dL (3.5-5.0); Anion Gap 15 (12-20); Blood Urea Nitrogen 19 mg/dL (9-16); Calcium 9.3 mg/dL (8.4-10.2); Carbon Dioxide 24 mmol/L (22-29); Chloride 105 mmol/L (96-108); Estimated Glomerular Filt Rate 40; Magnesium 1.9 mg/dL (1.6-2.6); Phosphorus 2.8 mg/dL (2.7-4.5); Potassium 4.2 mmol/L (3.3-5.1); Sodium 140 mmol/L (135-145)
[2022-07-20 14:47] LABS: Vitamin D 25-OH Total 22.8 ng/mL (>30)
[2022-07-20 15:09] LABS: Appearance Urine Clear; Color Urine Yellow; Glucose Urine UA Negative (Negative); Leukocyte Esterase Urine Negative (Negative); Nitrite Urine Negative (Negative); PH 5.5 (5.0-9.0); Specific Gravity - Urine 1.015 (1.005-1.025); UMIC TRIGGER UA YES; Urine Blood Negative (Negative); Urine Ketones Negative (Negative); Urine Protein 30 (1+) mg/dL (Neg-Trace)
[2022-07-20 15:14] LABS: Bacteria Urine None Seen (None Seen); Hyaline Casts Urine 0-2 /LPF (0-2); RBC Urine 0-2 /HPF (0-2); Squamous Epithelial Cell Urine 0-2 /HPF (0-2); WBC Urine 0-5 /HPF (0-5)
[2022-07-20 15:31] LABS: Microalbum/Creatinine Ratio Ur 137.6 ug/mg cr; Protein/Creatinine Ratio, Ur 0.24 (<0.2); Total Protein Urine Random 43 mg/dL (<12)
[2022-07-22 14:27] LABS: Calcium (PTHI) 9.4 mg/dL (8.6-10.3); PTHI 56 pg/mL (16-77)
== END 2022-07-20 13:32 | disposition home or self-care (01) ==
LOC: HO.LAB 13:31
PROVIDERS: PCP Internal Medicine; Visit Provider Internal Medicine Nephrology
DX: I10 Essential (primary) hypertension (principal)
CPT/HCPCS: 36415; 80051; 81001; 82040; 82043; 82306; 82310; 82565; 83735; 83970; 84100; 84156; 84520; 85025; 87086

== ENCOUNTER → 2022-08-04 13:29 | Outpatient (BNVA) | payer OTHER, SELFPAY | PROVIDERS: PCP Internal Medicine; Referring Provider Internal Medicine; Visit Provider Internal Medicine | DX: I51.7 Cardiomegaly (principal); I10 Essential (primary) hypertension | CPT/HCPCS: 99212 ==

== ENCOUNTER 2022-10-12 10:16 | Outpatient (REF) | payer OTHER, SELFPAY ==
[2022-10-12 10:29] LABS: MANUAL DIFF FLAG NO
[2022-10-12 11:07] LABS: Basophils Absolute Auto 0.1 X10*3/uL (0.0-0.2); Basophils Percent Auto 0.7 % (0-2); Eosinophils Absolute Auto 0.2 X10*3/uL (0.0-0.4); Eosinophils Percent Auto 1.8 % (0-4); Hematocrit 40.5 % (42.0-52.0); Hemoglobin 13.1 g/dl (14.0-18.0); Imm Gran Abs Auto 0.03 X10*3/uL (0.00-0.03); Imm Gran Pct Auto 0.4 % (0.0-0.4); Lymphocytes Percent Auto 24.4 % (20-40); Mean Corpuscular HGB Conc 32.3 g/dl (31.0-36.0); Mean Corpuscular Hemoglobin 24.5 pg (27.0-33.0); Mean Corpuscular Volume 75.8 fL (80.0-98.0); Mean Platelet Volume 9.3 fL (9.4-12.4); Monocytes Absolute Auto 0.6 X10*3/uL (0.1-1.2); Monocytes Percent Auto 7.4 % (2-11); Neutrophils Absolute Auto 5.4 x10*3/uL (2.0-8.3); Neutrophils Percent Auto 65.3 % (45-73); Platelet Count 301 X10*3/uL (160-400); Red Blood Count 5.34 X10*6/uL (4.60-5.80); White Blood Count 8.3 X10*3/uL (4.8-10.8)
[2022-10-12 11:13] LABS: Appearance Urine Clear; Color Urine Yellow; Glucose Urine UA Negative (Negative); Leukocyte Esterase Urine Negative (Negative); Nitrite Urine Negative (Negative); Specific Gravity - Urine 1.015 (1.005-1.025); Urine Blood Negative (Negative); Urine Ketones Negative (Negative); Urine Protein Negative (Neg-Trace)
[2022-10-12 11:19] LABS: Bacteria Urine None Seen (None Seen); Hyaline Casts Urine 0-2 /LPF (0-2); RBC Urine 0-2 /HPF (0-2); Squamous Epithelial Cell Urine 0-2 /HPF (0-2); WBC Urine 0-5 /HPF (0-5)
[2022-10-12 11:38] LABS: Creatinine Urine 135.75 mg/dL; Microalbum/Creatinine Ratio Ur 47.1 ug/mg cr; Total Protein Urine Random 14 mg/dL (<12)
[2022-10-12 12:14] LABS: Albumin Level 4.1 g/dL (3.5-5.0); Anion Gap 14 (12-20); Blood Urea Nitrogen 27 mg/dL (9-16); Calcium 9.3 mg/dL (8.4-10.2); Carbon Dioxide 27 mmol/L (22-29); Chloride 101 mmol/L (96-108); Estimated Glomerular Filt Rate 38; Magnesium 1.7 mg/dL (1.6-2.6); Phosphorus 2.7 mg/dL (2.7-4.5); Potassium 3.6 mmol/L (3.3-5.1); Sodium 138 mmol/L (135-145)
[2022-10-12 12:37] LABS: Vitamin D 25-OH Total 23.1 ng/mL (>30)
[2022-10-13 11:39] LABS: Calcium (PTHI) 9.2 mg/dL (8.6-10.3); PTHI 41 pg/mL (16-77)
== END 2022-10-12 10:17 | disposition home or self-care (01) ==
LOC: HO.LAB 10:16
PROVIDERS: PCP Internal Medicine; Visit Provider Internal Medicine Nephrology
DX: I10 Essential (primary) hypertension (principal)
CPT/HCPCS: 36415; 80051; 81001; 82040; 82043; 82306; 82310; 82565; 83735; 83970; 84100; 84156; 84520; 85025; 87086

== ENCOUNTER → 2022-11-02 12:59 | Outpatient (BNVA) | payer OTHER, SELFPAY | PROVIDERS: PCP Internal Medicine; Referring Provider Internal Medicine; Visit Provider Internal Medicine | DX: Z13.89 Encounter for screening for other disorder (principal) ==